=== PATIENT | female | born 1970 | race Caucasian/White ===

== ENCOUNTER 2017-09-28 11:44 | Emergency (ER) | payer OTHER, SELFPAY ==
[2017-09-28 11:45] VITALS: BP 145/90; PULSE 78; RESP 18; TEMP 36.6; O2SAT 100; BMI 26.6
--- NOTE | 2017-09-28 12:00 | EKG12_ITS ---
Test Reason : DIZZINESS Blood Pressure : / mmHG Vent. Rate : 067 BPM Atrial Rate : 067 BPM P-R Int : 130 ms QRS Dur : 076 ms QT Int : 386 ms P-R-T Axes : 061 072 059 degrees QTc Int : 407 ms Normal sinus rhythm Normal ECG Confirmed by MARBIN GREEN, SARA ([id number]), managing editor MARISSA BUSTAMANTE ([id number] on 09/30/2017 2:57:13 PM Referred By: SIMON Confirmed By:SARA ZAZUETA MD
[2017-09-28 12:03] VITALS: BP 129/73; BP 135/86; BP 139/87; PULSE 60; PULSE 81
[2017-09-28] MEDS: 0.9% Normal Saline 1,000 ML 1000 ML IV (12:19)
[2017-09-28 12:30] LABS: Absolute Lymphocyte Count 2.61 X10^3/ul (0.83-4.51); Absolute Neutrophil Count 5.2 X10^3/uL (2.0-7.7); Basophil# 0.04 X10^3/uL; Basophil% 0.5 % (0-1); Eosinophil# 0.06 X10^3/uL; Eosinophils% 0.7 % (0-5); Hematocrit 40.8 % (37-47); Hemoglobin 13.5 g/dl (12.0-15.0); Lymphocyte # 2.61 X10^3/ul (4.0); Lymphocyte % 30.5 % (19-41); Mean Corp Hgb Conc 33.1 g/gl (32-36); Mean Corpuscular Hgb 29.5 pg (27.0-32.0); Mean Corpuscular Volume 89.3 fL (81-99); Mean Platelet Vol. 9.5 fl (6.2-12.0); Neutrophil # 5.23 X10^3/uL (2.7-7.7); Neutrophil % 61.2 % (47-70); Platelet Count 295 K/mm3 (150-450); RBC Distribution Width CV 13.9 % (11.6-14.6); Red Blood Count 4.57 M/mm3 (4.2-5.4); White Blood Count 8.6 K/mm3 (4.4-11.0)
[2017-09-28 12:32] LABS: POSITIVE COUNT NO; POSITIVE DIFFERENTIAL NO; POSITIVE MORPHOLOGY NO
[2017-09-28 12:41] LABS: Anion Gap 5 (5-15); BUN 11 mg/dL (7-18); BUN/Creat Ratio 18.4 RATIO (10-20); Calcium,Total 8.5 mg/dL (8.5-10.1); Chloride 108 mmol/L (98-107); EST Glomerular Filtration Rate 114 mL/min (>60); Est Glom Filt Rate - Afr Amer 138 mL/min (>60); Estimated Creatinine Clearance 121.14 ml/min; Glucose 90 mg/dL (74-106); Potassium 3.3 mmol/L (3.5-5.1); Sodium Level 141 mmol/L (136-145)
--- NOTE | 2017-09-28 12:53 | PCA ---
DR. BERMUDEZ PAGED
--- NOTE | 2017-09-28 13:05 | ED.DCSUM_ITS ---
- ER Visit Summary Date of Service: 09/28/17 Chief Complaint: Dizziness History of Present Illness: The patient is a 46 F with dizziness. Patient states that she has been dizzy with spinning sensation intermittently for the past month. Today she states she felt weak all over and fell to the ground. She had no syncope no loss of consciousness. She did not hit her head. She states she bumped her right knee and right first finger. She has been able to ambulate since. She also complains of fatigue ?1 month. She also complains of blood pressure issues which have been ongoing for the past 2 years. 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 On arrival her is requesting an MRI with and without contrast. Physical Examination: Vitals are stable. Patient is afebrile. Alert no acute distress. HEENT exam is unremarkable. Neck is supple. Lungs are clear and equal bilaterally. Heart is regular rate and rhythm. Abdomen is soft nontender nondistended. Extremities are unremarkable. Skin is warm and dry. No focal neurologic deficit. Remainder of exam is unremarkable. Emergency Department Course and Treatment: EKG is sinus rate is 67 with no acute ischemic changes. CBC, chemistries unremarkable. Orthostatics are negative. Patient was given IV fluids, meclizine with improvement. Discussed with Dr. Shabazz and patient will have an MRI brain in ED without contrast. MRI shows no acute process. Patient was given Zofran IV. She is given a prescription for Meclizine. She is advised to follow-up with Dr. Olivera her primary care physician. Advised return to ED if worsening complaints. Disposition: Discharge home Impression: Benign positional vertigo This note was generated with [employer] dictation software. It may contain incorrect words, spelling, and punctuation that were not noted in review of the chart prior to signing ED Disposition - Plan for ED Patient: Chief Complaint: Dizziness Referrals: Angelo Olivera DO [Primary Care Provider] -
[2017-09-28] MEDS: Meclizine HCl 25 MG Tablet PO (13:10)
--- NOTE | 2017-09-28 13:20 | MRI_ITS ---
STUDY: MRI BRAIN WITHOUT CONTRAST REASON FOR EXAM: Female, 46 years old. Vertigo, dizzy. No syncope. TECHNIQUE: Standardized multiplanar fat and water weighted pulse sequences were obtained. COMPARISON: None. FINDINGS: No restricted diffusion to suspect acute or subacute ischemic infarct. Normal size of the ventricles and extra-axial spaces for the patient's age. Normal white matter tracts of the supratentorial brain. Normal bilateral basal ganglia. Normal thalami. There is no extra-axial fluid accumulation. Normal flow voids within the major intracranial circulation suggesting patency by spin echo criteria. Normal sella turcica, pituitary gland, infundibular stalk, optic chiasm and hypothalamus. Normal tectal plate and pineal gland. Normal midbrain, olga and medulla. Normal cerebellum. Normal basal cisterns. Normal bilateral temporal bones. Normal bilateral internal auditory canals. No demonstrated orbital abnormality, within the constraints of a routine brain study. Normal visualized paranasal sinuses. Normal calvarium and skull base. Normal visualized soft tissue structures. Normal visualized upper cervical spine. MRI/Brain without Contrast IMPRESSION: Normal unenhanced MRI of the brain. Electronically Signed: Pro Bal MD at 14:52 EDT , Service support ,
[2017-09-28] MEDS: Ondansetron 4 MG/2 ML Vial IV (14:59)
--- NOTE | 2017-09-28 15:01 | ED.DEP ---
ED Disposition - Plan for ED Patient: Chief Complaint: Dizziness Instructions: ED BPV Vertigo Prescriptions: Meclizine HCl [Antivert] 12.5 mg PO TID PRN PRN #20 tablet PRN Reason: Vertigo Referrals: Angelo Olivera DO [Primary Care Provider] -
[2017-09-28 15:29] VITALS: BP 129/81; PULSE 52; RESP 16; O2SAT 98
== END 2017-09-28 15:30 | disposition home or self-care (01) ==
PROVIDERS: Emergency Provider Emergency Medicine; Family Provider Family Medicine; PCP Family Medicine
DX: H81.10 Benign paroxysmal vertigo, unspecified ear (principal); E27.1 Primary adrenocortical insufficiency; Z79.899 Other long term (current) drug therapy
CPT/HCPCS: 70551; 80048; 85025; 93005; 96361; 96374; 99283; J7030; A4216; J2405

== ENCOUNTER 2017-10-03 10:41 | Emergency (ER) | payer OTHER, SELFPAY ==
[2017-10-03 10:42] VITALS: BP 150/73; PULSE 89; RESP 17; TEMP 36.1; O2SAT 100; BMI 29.1
--- NOTE | 2017-10-03 10:48 | RAD_ITS ---
STUDY: X-RAY - RIGHT HAND REASON FOR EXAM: Female, 46 years old. Right hand pain after fall yesterday TECHNIQUE: 3 view(s) of the hand. COMPARISON: None. FINDINGS: Normal radiocarpal articulation. Normal distal radioulnar joint. Normal visualized carpal bones. Normal carpal articulations Normal carpometacarpal articulation of the thumb. Normal second through fifth carpometacarpal joints. Normal metacarpi. Normal metacarpophalangeal joint of the thumb. Normal interphalangeal joint of the thumb. Normal proximal and distal phalanges of the thumb. Normal metacarpophalangeal joints of the second through fifth fingers. Normal proximal and distal interphalangeal joints of the second through fifth fingers. Normal phalanges of the second through fifth fingers. The soft tissue structures are unremarkable. RAD/Hand Min 3 Views IMPRESSION: Normal x-ray examination of the hand. Electronically Signed: Jerardo Bell DO at 11:56 EDT Tel , Service support ,
--- NOTE | 2017-10-03 10:48 | RAD_ITS ---
STUDY: X-RAY - RIGHT WRIST REASON FOR EXAM: Female, 46 years old. Wrist pain after fall yesterday TECHNIQUE: 3 view(s) of the wrist were obtained. COMPARISON: None. FINDINGS: Normal visualized distal radius and ulna. Normal radiocarpal articulation. Normal distal radioulnar articulation. Normal carpal bones. Normal carpal articulations. Normal carpometacarpal articulation of the thumb. Normal second through fifth carpometacarpal articulations. Normal visualized metacarpal bones. The soft tissue structures are unremarkable. RAD/Wrist min 3 Views IMPRESSION: Normal x-ray examination of the wrist. Electronically Signed: Jerardo Bell DO at 11:57 EDT Tel , Service support ,
--- NOTE | 2017-10-03 10:55 | ED.VISSUMM ---
- ER Visit Summary Date of Service: 10/03/17 Chief Complaint: Right hand and wrist pain. History of Present Illness: The patient is a 46 F presenting with right hand and wrist pain. Patient states she fell onto her outstretched right upper extremity yesterday. She has had persistent pain in her hand and wrist. She tried Aleve at home. She did not hit her head or lose consciousness. Physical Examination: Vitals are stable. Patient is afebrile. Alert no acute distress. HEENT exam is unremarkable. Neck is nontender Lungs are clear and equal bilaterally. Heart is regular rate and rhythm. Abdomen is soft nontender nondistended. Extremities mild diffuse tenderness right hand and wrist. Active full range of motion. No elbow tenderness Skin is warm and dry. Remainder of exam is unremarkable. Emergency Department Course and Treatment: Xray of the right hand and wrist show no acute process. She is given a Velcro wrist splint. Advised to continue NSAIDs. Advised to ice and elevate. Advised to follow-up with her primary care physician. Advised return to ED for worsening complaints. Disposition: Discharged home Impression: Right wrist sprain status post fall This note was generated with [employer] dictation software. It may contain incorrect words, spelling, and punctuation that were not noted in review of the chart prior to signing ED Disposition - Plan for ED Patient: Chief Complaint: Upper Extremity Injury Instructions: ED Sprain Wrist Referrals: Angelo Olivera DO [Primary Care Provider] -
--- NOTE | 2017-10-03 12:19 | ED.DEP ---
ED Disposition - Plan for ED Patient: Chief Complaint: Upper Extremity Injury Instructions: ED Sprain Wrist Referrals: Angelo Olivera DO [Primary Care Provider] -
[2017-10-03 12:28] VITALS: RESP 16
--- NOTE | 2017-10-03 12:28 | ED.RN ---
Pt has wrist splint at home that she put on. okay if pt wants to use home splint. Answered all questions. No further concerns.
== END 2017-10-03 12:30 | disposition home or self-care (01) ==
PROVIDERS: Emergency Provider Emergency Medicine; Family Provider Family Medicine; PCP Family Medicine
DX: S63.501A Unspecified sprain of right wrist, initial encounter (principal); W19.XXXA Unspecified fall, initial encounter; Y93.9 Activity, unspecified; Y92.9 Unspecified place or not applicable; Y99.9 Unspecified external cause status
CPT/HCPCS: 73110; 73130; 99282

== ENCOUNTER → 2017-10-22 15:21 | Outpatient (CLI) | payer OTHER, SELFPAY ==
--- NOTE | 2017-10-22 15:26 | RAD_ITS ---
STUDY: X-RAY - RIGHT HAND REASON FOR EXAM: Female, 46 years old. 3 TECHNIQUE: Right hand view(s) of the hand. COMPARISON: FINDINGS: There is no evidence of fracture or dislocation. There are no significant degenerative changes. There are no radiodense foreign bodies. RAD/Hand Min 3 Views IMPRESSION: No fracture or dislocation. Electronically Signed: Sarmad See, at 23:59 EDT Tel , Service support ,
--- NOTE | 2017-10-22 15:26 | RAD_ITS ---
STUDY: X-RAY - RIGHT WRIST REASON FOR EXAM: Female, 46 years old. Continued pain and swelling status post fall 3 weeks ago. TECHNIQUE: 4 view(s) of the wrist were obtained. COMPARISON: October 03, 2017 FINDINGS: Normal visualized distal radius and ulna. Normal radiocarpal articulation. Normal distal radioulnar articulation. Normal carpal bones. Normal carpal articulations. Normal carpometacarpal articulation of the thumb. Normal second through fifth carpometacarpal articulations. Normal visualized metacarpal bones. The soft tissue structures are unremarkable. RAD/Wrist min 3 Views IMPRESSION: There is no acute displaced fracture or dislocation. There is no significant interval change. MRI may provide additional detail assessing for soft tissue/ligamentous injury. Electronically Signed: Bessie Church MD at 7:56 EDT , Service support ,
== END ==
PROVIDERS: Family Provider Family Medicine; PCP Family Medicine; Visit Provider Family Medicine
DX: M25.531 Pain in right wrist (principal)
CPT/HCPCS: 73110; 73130

== ENCOUNTER → 2017-11-12 10:47 | Outpatient (CLI) | payer OTHER, SELFPAY ==
--- NOTE | 2017-11-12 10:50 | RAD_ITS ---
STUDY: X-RAY - THORACIC SPINE REASON FOR EXAM: Female, 46 years old. Scoliosis TECHNIQUE: 3 view(s) of the thoracic spine were obtained. COMPARISON: None. FINDINGS: Normal kyphosis of the thoracic spine. There is minimal dextro scoliosis of the thoracic spine. Normal thoracic vertebrae and endplates. Normal disc space heights. 5.5 mm nodule in the mid right lung. The soft tissue structures are unremarkable. RAD/Thoracic Spine 3 Views IMPRESSION: Mild dextro scoliosis of the thoracic spine. Right mid lung nodule. Correlation with prior imaging would be helpful if available. Otherwise, please obtain chest CT follow-up. Electronically Signed: Amado Burnett MD at 17:04 EDT , Service support ,
--- NOTE | 2017-11-12 10:50 | RAD_ITS ---
STUDY: X-RAY - LUMBAR SPINE REASON FOR EXAM: Female, 46 years old. Scoliosis TECHNIQUE: 3 view(s) of the lumbar spine were obtained. COMPARISON: None FINDINGS: Normal lumbar lordosis. There is a levoscoliosis of the lumbar spine. There is 27 degree scoliosis of the lumbar spine at the level of L1-2. There is a normal alignment of the vertebrae. Normal vertebral bodies and endplates. Normal disc space heights. The soft tissue structures are unremarkable. RAD/Lumbar Spine 2 or 3 Views IMPRESSION: There is a levoscoliosis of the lumbar spine. There is 27 degree scoliosis of the lumbar spine at the level of L1-2. Electronically Signed: Amado Burnett MD at 17:04 EDT , Service support ,
== END ==
PROVIDERS: Family Provider Family Medicine; PCP Family Medicine; Visit Provider Family Medicine
DX: M43.8X9 Other specified deforming dorsopathies, site unspecified (principal); M54.5 Low back pain
CPT/HCPCS: 72072; 72100

== ENCOUNTER → 2017-11-25 15:39 | Outpatient (CLI) | payer OTHER, SELFPAY ==
--- NOTE | 2017-11-25 15:42 | CT_ITS ---
STUDY: CT CHEST WITH CONTRAST REASON FOR EXAM: Female, 47 years old. Lung nodule RADIATION DOSAGE (If Supplied By Facility): CTDIvol = ( 8.81 ) mGy, DLP = ( 299.94 ) mGycm TECHNIQUE: Transaxial imaging was performed following intravenous administration of 100CC ml of Isovue 300 contrast material. Individualized dose optimization techniques were used for this CT. COMPARISON: Prior study of 04/10/2016 FINDINGS: There are mild fibrotic changes of the lung apices. There are mild diffuse emphysematous changes of the lungs. There is an 8.5 mm calcified granuloma of the right upper lobe abutting the minor fissure. There is no demonstrated pleural abnormality. Normal heart and pericardium. There is a small calcified subcarinal node. There are several calcified right hilar nodes. Normal enhanced pulmonary arteries. Normal aorta arch and descending thoracic aorta. There is mild thoracic dextroscoliosis. There is a stable 6 mm right hepatic lobe cyst. There are stable bilateral thyroidal cysts and/or nodules. CT/Chest WITH Contrast IMPRESSION: 1. Mild fibrotic changes of the lung apices. 2. Mild emphysematous changes of the lungs predominantly involving the upper lobes. 3. Stable 8.5 mm calcified granuloma of the right upper lobe. 4. Small calcified subcarinal and right hilar nodes. 5. Stable 6 mm right hepatic lobe cyst. 6. Stable bilateral thyroid cysts and/or nodules. Electronically Signed: Fili Melendez MD at 16:45 EDT , Service support ,
== END ==
PROVIDERS: Family Provider Family Medicine; PCP Family Medicine; Visit Provider Family Medicine
DX: R91.1 Solitary pulmonary nodule (principal); Z72.0 Tobacco use
CPT/HCPCS: 71260; Q9967

== ENCOUNTER 2018-04-20 15:30 | Outpatient (RCR) | payer OTHER, SELFPAY ==
--- NOTE | 2018-02-17 17:13 | HP.OTEVAL_ITS ---
Patient's Visit Information VY HARLEY is a 47 year old F, referred to Occupational Therapy by Abhay Lee, with a diagnosis of Tenosynovectomy R wrist; intersection syndrome. Date of Evaluation: 02/17/18 Occupational Therapist: Eileen Bond - Subjective Subjective: Arrived and noted had surgery on January 27. Notes fell on October 02. 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 Notes uses hands daily. She noted that she 'had surgery to place tendons in correct location and clean out scar tissue'. Cast off last Wednesday. Noted went to [facility] OT no push/ pulling for a couple weeks. OT reiterated points and review AROM exercises provided [facility]. She is to continue HEP and scar massage form as well as elastomer provided for scar management. - Pain Right Wrist 5 Pain Intensity Range: 2, 9 - ROM Forearm: sup R 0-65, L WNL; Pro R 0-65, L WNL Wrist: Flexion R 0-15, L 0-84; ext R 0-26, L 0-62 MP: WFL PIP: WFL DIP: WFL ROM Comments: radial dev R 0-0, L 0-5. 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 Strength Comments: Recebtly out of cast but very painful with all movement as came to OT post work day. Will progressively work on getting fx pincer measurments. - Sensation Sensation Comments: Denies tingling; some numbness around scar and elbow. - In-Hand Manipulation Finger to Palm Translation: Moderate - Right, Normal - Left Palm to Finger Translation: Moderate - Right, Normal - Left Shift: Normal - Right, Normal - Left Rotation: Normal - Right, Normal - Left - DASH-Disabilities of Arm, Shoulder& Hand DASH Sum: 112 - Goals Goal:: Vy to increased R metal cut off saw tender to that of within 20-30 lbs of L nonaffected hand to promote increased strength need to manipulate self care items by d/c. Goal:: Vy to increased ROM of R wrist by 10-15 degrees to promote increased mobility of R wrist to increased fx needed to manipulate self care tasks by d/c. Goal:: Vy to have no more than 1/10 pain while completing ADl/IADls 4/5 trials 80% of the time to promote increased ability to return to PLFO by d/c. Goal:: Vy to be mod I to complete edema management techniques 4/5 trials 80% of the time to promote increased ROM and strength for ADL/IADls by d/c. Goal:: Vy to complete daily scar massage as directed to promote and manage scar tissue 4/5 trials 80% of the time by d/c. Goal:: Vy to be mod I to complete proper wrist mechanics at desk based job 4/ 5 trials 80% of the time to decrease pain and promote particpation in job by d/ c. Goal:: Vy to be (I) to return to all ADl/IADls including crocheting 4/5 trials 80% of the time with good wrist mechanics to promote returning to PLOF by d/c. - Rehabilitation General Assessment: Vy arrived for OT evaluation on this date. She had fall October 02 resulting in wrist injury and most recently has tenosynovectomy of R wrist. ROM, strength, and ability to complete ADl/IADls at PLOF is extremely limited. She is back to work at this time but notes increased achiness. OT to work on edema management, scar massage and management, ROM, strength, and returning to all ADL/IADLS at PLOF to promote increased use of R UE at PLOF. Rehabilitation Potential: Excellent - Anticipated Interventions Anticipated Interventions: Early Active Motion, A/AAROM/PROM, Strengthening, Scar Care, Triggerpoint Release, Desensitization, Modalities, Orthoses, Joint Protection/Energy Conservation, Ergonomic Education, Fine Motor Coord/Abdirashid, ADL Training, Caregiver Training, Home Program - Visit Plan Frequency: 2x /Week Duration: 6 Weeks General Plan: OT to promote increased ROM, strength, edema management, pain management through use of modalities, ergonomic and joint protection techiques, as well as increasing fx of R hand to return to PLOF. TEXT: Thank you for the opportunity to evaluate your patient. For Medicare and Medicare HMO plans, please review the plan of care and approve it. It will need to be FAXED BACK to us at [phone] for Medicare purposes. Please let me know if there are questions or concerns regarding this plan of care. Physician Signature: Date:
--- NOTE | 2018-03-23 19:02 | HP.OTREVAL ---
Abhay Lee, It has been my pleasure to treat VY HARLEY over the last 6 visits for Tenosynovectomy R wrist; intersection syndrome. Please see the progress note below for an update on the occupational therapy plan of care! Subjective: Arrived and noted increased soreness post last session. Noted soreness about 2/10. Follow up appointment with doctor wednesday morning. Report to be sent over. Objective/Function: Reassessment occurred on this date of 03/23/18. She is progressing with all measurements and goals will be adjusted. Measurements as follows: ROM. Wrist: flexion R 0-48, L WNL. ext: R 0-44, L WNL. supination: R 0-60, L 0-79. radial dev: R 0-14, L WNL. ulnar dev: R 0-17, L WNL. Strength assessment is as follows: Evaporator: standing position arm at 90: R76, L 89. Evaporator sitting arm at 90: R 70, L 105. lateral pinch : R 19, L 21. three jaw : R 16, L 18. pincer: R 10, L 14. Strength and ROM have progressed since initial evaluation. Plan Frequency: 2x /Week Duration: 3 Weeks Visits in this POC: 6 Plan: continue POC as scheduled with next three weeks of OT to promote increased strength and continued ROM as she continues to progress with measurements. She is compliant with HEP and is to slowly and progressively start using R hand as tolerated for light ADl/IADls. She still is favoring R hand as to be explected and has not returned to all IADls. Further Ot needed to promote increased (I) to return to PLOF. Goals - Goals Goal:: Vy to increased R histologic aide to that of within 20-30 lbs of L nonaffected hand to promote increased strength need to manipulate self care items by d/c. Goal:: Vy to increased ROM of R wrist within 20 degrees of L nonaffected hand to promote increased mobility of R wrist to increased fx needed to manipulate self care tasks by d/c. Goal:: Vy to have no more than 1/10 pain while completing ADl/IADls 4/5 trials 80% of the time to promote increased ability to return to PLFO by d/c. Goal:: Vy to be mod I to complete edema management techniques 4/5 trials 80% of the time to promote increased ROM and strength for ADL/IADls by d/c. Goal:: Vy to complete daily scar massage as directed to promote and manage scar tissue 4/5 trials 80% of the time by d/c. 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 Goal:: Vy to be (I) to return to all ADl/IADls including crocheting 4/5 trials 80% of the time with good wrist mechanics to promote returning to PLOF by d/c. Anticipated Interventions Anticipated Interventions: Early Active Motion, A/AAROM/PROM, Strengthening, Scar Care, Triggerpoint Release, Desensitization, Modalities, Orthoses, Joint Protection/Energy Conservation, Ergonomic Education, Fine Motor Coord/Abdirashid, ADL Training, Caregiver Training, Home Program Please do not hesitate to contact me at [phone] by phone or if you have questions or concerns regarding this new plan of care! Sincerely, Eileen Bond
--- NOTE | 2018-03-23 19:05 | OTREVAL_ITS ---
Abhay Lee, It has been my pleasure to treat VY HARLEY over the last 6 visits for Tenosynovectomy R wrist; intersection syndrome. Please see the progress note below for an update on the occupational therapy plan of care! Subjective: Arrived and noted increased soreness post last session. Noted soreness about 2/10. Follow up appointment with doctor wednesday morning. Report to be sent over. Objective/Function: Reassessment occurred on this date of 03/23/18. She is progressing with all measurements and goals will be adjusted. Measurements as follows: ROM. Wrist: flexion R 0-48, L WNL. ext: R 0-44, L WNL. supination : R 0-60, L 0-79. radial dev: R 0-14, L WNL. ulnar dev: R 0-17, L WNL. Strength assessment is as follows: Face Burler: standing position arm at 90: R76, L 89. Face Burler sitting arm at 90: R 70, L 105. lateral pinch : R 19, L 21. three jaw : R 16, L 18. pincer: R 10, L 14. Strength and ROM have progressed since initial evaluation. Plan Frequency: 2x /Week Duration: 3 Weeks Visits in this POC: 6 Plan: continue POC as scheduled with next three weeks of OT to promote increased strength and continued ROM as she continues to progress with measurements. She is compliant with HEP and is to slowly and progressively start using R hand as tolerated for light ADl/IADls. She still is favoring R hand as to be explected and has not returned to all IADls. Further Ot needed to promote increased (I) to return to PLOF. Goals - Goals Goal:: Vy to increased R production grip to that of within 20-30 lbs of L nonaffected hand to promote increased strength need to manipulate self care items by d/c. Goal:: Vy to increased ROM of R wrist within 20 degrees of L nonaffected hand to promote increased mobility of R wrist to increased fx needed to manipulate self care tasks by d/c. Goal:: Vy to have no more than 1/10 pain while completing ADl/IADls 4/5 trials 80% of the time to promote increased ability to return to PLFO by d/c. Goal:: Yv to be mod I to complete edema management techniques 4/5 trials 80% of the time to promote increased ROM and strength for ADL/IADls by d/c. Goal:: Vy to complete daily scar massage as directed to promote and manage scar tissue 4/5 trials 80% of the time by d/c. Goal:: Vy to be mod I to complete proper wrist mechanics at desk based job 4/ 5 trials 80% of the time to decrease pain and promote particpation in job by d/ c. Goal:: Yv to be (I) to return to all ADl/IADls including crocheting 4/5 trials 80% of the time with good wrist mechanics to promote returning to PLOF by d/c. Anticipated Interventions Anticipated Interventions: Early Active Motion, A/AAROM/PROM, Strengthening, Scar Care, Triggerpoint Release, Desensitization, Modalities, Orthoses, Joint Protection/Energy Conservation, Ergonomic Education, Fine Motor Coord/Abdirashid, ADL Training, Caregiver Training, Home Program Please do not hesitate to contact me at [phone] by phone or Fax: if you have questions or concerns regarding this new plan of care! Sincerely, Eileen Bond
--- NOTE | 2018-04-20 16:25 | OTREVAL_ITS ---
Abhay Lee, It has been my pleasure to treat VY HARLEY over the last 9 visits for Tenosynovectomy R wrist; intersection syndrome. Please see the progress note below for an update on the occupational therapy plan of care! Subjective: Arrived and noted needed medications adjusted as having seziures and thats why needing to cancel. Feels about 75-80 back to PLOF. Objective/Function: Completed reassessment on this date. Completed measurments as follows: wrist: flexion: R 0-61, L WFL. extension R 0-51, L WFL. supination R 0-82, L WFL. Radial deviation R 0-14, L WFL. Ulnar Deviation: R0- 29, L WFL. Strength measurments are as follows: Manager Agricultural: R 83, L 86. Lateral; R 21, L 21. Tripod: R 17, L 18. Pincer R 14, L 14. Plan Frequency: 1x/Week Duration: 3 Weeks Visits in this POC: 1 Plan: Pt is progressing well and continues to make improvements. She will complete 1x follow follow up in 3 weeks. She has done very well with completing HEp and has continually improved throughout the course of therapy. She is to call questions/concerns. 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 Goal:: Vy to increased ROM of R wrist within 20 degrees of L nonaffected hand to promote increased mobility of R wrist to increased fx needed to manipulate self care tasks by d/c. Goal:: Vy to have no more than 1/10 pain while completing ADl/IADls 4/5 tria ls 80% of the time to promote increased ability to return to PLFO by d/c. Goal:: Vy to be mod I to complete edema management techniques 4/5 trials 80% of the time to promote increased ROM and strength for ADL/IADls by d/c. Goal:: Vy to complete daily scar massage as directed to promote and manage scar tissue 4/5 trials 80% of the time by d/c. 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 Goal:: Vy to be (I) to return to all ADl/IADls including crocheting 4/5 trials 80% of the time with good wrist mechanics to promote returning to PLOF by d/c. Anticipated Interventions Anticipated Interventions: Early Active Motion, A/AAROM/PROM, Strengthening, Scar Care, Triggerpoint Release, Desensitization, Modalities, Orthoses, Joint Protection/Energy Conservation, Ergonomic Education, Fine Motor Coord/Abdirashid, ADL Training, Caregiver Training, Home Program Please do not hesitate to contact me at [phone] by phone or if you have questions or concerns regarding this new plan of care! Sincerely, Eileen Bond
--- NOTE | 2018-06-30 14:58 | HP.OTDCSUM ---
HP - OT D/C Summary It has been my pleasure to treat VY HARLEY under orders from Abhay Lee, for the diagnosis of Tenosynovectomy R wrist; intersection syndrome for a total of 9 visit(s). Please see the following information for a summary of their discharge status. - Overall Improvement % Improvement: 75 - Objective Objective/Function: Completed reassessment on this date. Completed measurments as follows: wrist: flexion: R 0-61, L WFL. extension R 0-51, L WFL. supination R 0-82, L WFL. Radial deviation R 0-14, L WFL. Ulnar Deviation: R0-29, L WFL. Strength measurments are as follows: Silo Filler: R 83, L 86. Lateral; R 21, L 21. Tripod: R 17, L 18. Pincer R 14, L 14. - Goals Patient Goals: Regain Mobility, Regain Strength, Decrease Pain, Return to Work, Decrease Swelling/Stiffness, Improve Fine Motor Skills, Use Hand/Wrist/Arm Normally Again, Sleep Better, Decrease Tingling/Numbness, Increase ROM, Be More Independent in ADLS, Decrease Sensitivity, Resume Former Household Responsibilities (Cooking,Cleaning,Yard, etc.), Resume Hobbies Goal:: Vy to increased R finisher map and chart to that of within 20-30 lbs of L nonaffected hand to promote increased strength need to manipulate self care items by d/c. Goal:: Vy to increased ROM of R wrist within 20 degrees of L nonaffected hand to promote increased mobility of R wrist to increased fx needed to manipulate self care tasks by d/c. Goal:: Vy to have no more than 1/10 pain while completing ADl/IADls 4/5 trials 80% of the time to promote increased ability to return to PLFO by d/c. Goal:: Vy to be mod I to complete edema management techniques 4/5 trials 80% of the time to promote increased ROM and strength for ADL/IADls by d/c. Goal:: Vy to complete daily scar massage as directed to promote and manage scar tissue 4/5 trials 80% of the time by d/c. 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 Goal:: Vy to be (I) to return to all ADl/IADls including crocheting 4/5 trials 80% of the time with good wrist mechanics to promote returning to PLOF by d/c. - Plan Plan: Pt is progressing well and continues to make improvements. She was to follow up in three weeks but did not complete and will be discharged at this time. She is to call questions/concerns. - D/C Information If there are questions or concerns regarding this patient's occupational therapy, please fell free to call me at [phone]. Thank you for the referral of this patient. Sincerely, Eileen Bond
== END 2018-04-20 19:00 | disposition home or self-care (01) ==
LOC: OT 15:30
PROVIDERS: Family Provider Family Medicine; PCP Family Medicine; Visit Provider Orthopaedic Surgery
DX: M65.4 Radial styloid tenosynovitis [de Quervain] (principal); M65.839 Other synovitis and tenosynovitis, unspecified forearm
CPT/HCPCS: 97035; 97110; 97140; 97166; 97168; 97530

== ENCOUNTER → 2018-06-21 12:08 | Outpatient (CLI) | payer OTHER, SELFPAY ==
[2018-06-21 12:11] LABS: White Blood Cells 0 SEEN /hpf (0-5)
[2018-06-21 15:22] LABS: Color, Urine Yellow (Yellow); Glucose, Dipstick Normal (Normal); Ketone-Dipstick Negative (Negative); Leukocyte Esterase-Dipstick Negative /ul (Negative); Nitrite-Dipstick Negative (Negative); Occult Blood-Urine 10 /ul (Negative); Protein-Dipstick Negative (Negative); Urine Bilirubin Dipstick Negative (Negative); Urine Clarity Sl. Cloudy (Clear); Urine Urobilinogen Normal (Normal)
[2018-06-21 15:26] LABS: Bacteria 2+ /hpf (None Seen); Mucous, Urine 1+ /hpf (<or=2+); Red Blood Cells-Urine 0-5 SEEN /hpf (0-5); Squamous Epithelial Cells - UA 0-5 SEEN /hpf (5-10)
[2018-06-21 15:51] LABS: Absolute Lymphocyte Count 2.81 X10^3/ul (0.83-4.51); Absolute Neutrophil Count 6.1 X10^3/uL (2.0-7.7); Basophil# 0.04 X10^3/uL; Basophil% 0.4 % (0-1); Eosinophil# 0.08 X10^3/uL; Eosinophils% 0.8 % (0-5); Hematocrit 43.9 % (37-47); Hemoglobin 14.1 g/dl (12.0-15.0); Lymphocyte # 2.81 X10^3/ul (4.0); Mean Corp Hgb Conc 32.1 g/gl (32-36); Mean Corpuscular Hgb 29.4 pg (27.0-32.0); Mean Corpuscular Volume 91.6 fL (81-99); Monocyte# 0.64 X10^3/uL; Monocyte% 6.6 % (0-10); Neutrophil % 63.1 % (47-70); Platelet Count 316 K/mm3 (150-450); RBC Distribution Width CV 13.9 % (11.6-14.6); RBC Distribution Width SD 46.9 fl (35.1-43.9); Red Blood Count 4.79 M/mm3 (4.2-5.4); White Blood Count 9.7 K/mm3 (4.4-11.0)
[2018-06-21 15:52] LABS: POSITIVE COUNT NO; POSITIVE DIFFERENTIAL NO; POSITIVE MORPHOLOGY NO
[2018-06-21 15:58] LABS: Erythrocyte Sedimentation Rate 2 mm/hr (0-20)
[2018-06-21 16:22] LABS: ALB/GLOB Ratio 1.4 RATIO (0.9-2.4); AST(SGOT) 13 U/L (15-37); Alanine Aminotransfer ALT/SGPT 21 U/L (13-56); Alkaline Phosphatase 62 U/L (45-117); Anion Gap 9 (5-15); BUN 8 mg/dL (7-18); BUN/Creat Ratio 10.8 RATIO (10-20); CPK Total, Creatine Kinase 62 U/L (26-192); CRP < 2.90 mg/L (0.0-3.0); Calcium,Total 8.7 mg/dL (8.5-10.1); Chloride 107 mmol/L (98-107); Creatinine, Serum 0.74 mg/dL (0.55-1.02); EST Glomerular Filtration Rate 89 mL/min (>60); Est Glom Filt Rate - Afr Amer 108 mL/min (>60); Globulin 2.9 g/dL (2.2-4.2); Glucose 89 mg/dL (74-106); Potassium 3.5 mmol/L (3.5-5.1); Protein, Total 6.9 g/dL (6.4-8.2); Sodium Level 143 mmol/L (136-145)
--- OUTSIDE RECORDS SUMMARY | 2018-09-22 21:48 | XMS RPT_ITS ---
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 Plan of Care Type Date Detail Appointment 09:00 AM Abhay Lee MD, [address] [facility], [facility], [place], [address], Medications Medication Instructions Start Stop Generic Name NDC Provider Date Date AMBIEN TABS 1 tablet once ZOLPIDEM TARTRATE 46269266358 Abhay Gutierrez a day unsu TABS Jesus of dosage ETODOLAC 400 MG 1 tablet twice ETODOLAC 57608727092 Ana M TABS daily / Esquivel MECHANICAL COMMISSIONING ENGINEER FLUDROCORTISONE 4 tablets once FLUDROCORTISONE [id number] Ana M ACETATE 0.1 MG daily / ACETATE Alvin TABS MECHANICAL COMMISSIONING ENGINEER EFFEXOR XR 150 MG 1 capsule VENLAFAXINE HCL 26257901427 Ana M [id number] Esquivel MECHANICAL COMMISSIONING ENGINEER Conditions or Problems Problem Name Problem Onset Status Entry Provider Comment Standard Annotate Code Date Date Description Radial styloid M65.4 Active Abhay Gutierrez Radial styloid tenosynovitis (ICD-10-CM) 01/25 01/25 Jesus tenosynovitis [de Quervain] [de Quervain] Intersection 885667701 Active Abhay Gutierrez Intersection Right syndrome (SNOMED CT) 12/31 12/31 Jesus syndrome Allergies, Adverse Reactions, Alerts Allergy Name Reaction Start Date Severity Status Provider Description CANTALOUPE throat swelling, Critical Active Abhay Lee MD BANANA throat swelling, Critical Active Abhay Lee MD PLANT POLLENS congestion, hay Critical Active Abhay Gutierrez fever allergy Jesus GREEN PENICILLIN hives Critical Active Abhay Lee MD CODEINE PHOSPHATE hives Critical Active Abhay Lee MD Social History Concept Description Observation Name Observation Value Units Start Date 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 Preliminary social history data, not yet signed by the author as of Vital Signs Date Name Value Unit Description BMI (Body Mass 26.70 kg/m2 Body Mass Index Index) [Ratio] Preliminary vital sign data, not yet signed by the author as of BP Diastolic 85 mm[Hg] blood pressure, diastolic Preliminary vital sign data, not yet signed by the author as of BP Systolic 129 mm[Hg] blood pressure, systolic Preliminary vital sign data, not yet signed by the author as of Heart Rate 76 /min pulse rate E&M Preliminary vital sign data, not yet signed by the author as of Height 68 [in_us] height E&M Preliminary vital sign data, not yet signed by the author as of Height 173 cm height in centimeters E&M Preliminary vital sign data, not yet signed by the author as of Weight Measured 175 [lb_av] weight E&M Preliminary vital sign data, not yet signed by the author as of Weight Measured 80 kg weight in kilograms E&M Preliminary vital sign data, not yet signed by the author as of Results Date Name Value Unit Range Flag Description Office Visit: Postop - subsequent visit, Rm: 11 MEDS REVIEW Done Documentation of current medications (procedure) Preliminary observation data, not yet signed by the author as of Preliminary observation data, not yet signed by the author as of Clinical Summary: HMSPatientID SOP account number Procedures Code Procedure Name Date Entry Date G8731 Pain assessment documented as negative - follow-up not required G8427 Current medications documented 4004F Tobacco screening was positive - cessation counseling received G8417 BMI documented as above normal parameters - follow-up documented G8783 Blood pressure within normal parameters - no follow-up required [id number] Patient Encounter Medications Administered No information available. Immunizations No information available. Advance Directives There may be information available, but it has not been provided by the sender. Assessments There may be information available, but it has not been provided by the sender. Review of Systems There may be information available, but it has not been provided by the sender. Family History There may be information available, but it has not been provided by the sender. History of Past Illness There may be information available, but it has not been provided by the sender. History of Present Illness There may be information available, but it has not been provided by the sender.
--- OUTSIDE RECORDS SUMMARY | 2018-09-22 21:48 | XMS RPT_ITS ---
:1970 Author Organization OHIP Care Team Providers Name Role Phone DAISY SANCHEZ Attending Unavailable DAISY SANCHEZ Referring Unavailable Angelo Olivera Attending Unavailable Angelo Olivera Primary Care Unavailable Angelo Olivera Attending Unavailable Joselin, Angelo Primary Care Unavailable Fontana DamAbhay barraza Attending Unavailable JoselinAngelo crooks Primary Care Unavailable JoselinAngelo crooks Attending Unavailable Joselin, Angelo Primary Care Unavailable Joselin, Angelo Primary Care Unavailable Simon, Paula Attending Unavailable Joselin, Angelo Primary Care Unavailable Southern, Paula Attending Unavailable Joselin, Angelo Attending Unavailable Joselin, Angelo Referring Unavailable Joselin, Angelo Primary Care Unavailable PROBLEMS PROBLEMS DATE TYPE CONDITION / CODE ATTENDING STATUS SOURCE 06/21/2018 Unknown R50.9 - Fever, Angelo Olivera Active [place] unspecified / Community R50.9(ICD-10) Hospital Repository 06/21/2018 Unknown M79.10 - Myalgia, Angelo Olivera Active [place] unspecified site / Community M79.10(ICD-10) Hospital Repository 07/04/2018 Unknown M65.4 - Radial Abhay Lee Active [place] styloid [facility] tenosynovitis [[facility]] / Repository M65.4(ICD-10) PROCEDURES PROCEDURES No Procedure Records FoundRESULTS RESULTS OT D/C SUMMARY Observed: 06/30/2018 Status: F Source: [place] 3:00 PM [facility] REPOSITORY [facility] Occupational Therapy [facility] [facility] [place] [address] / REHABILITATION SERVICES DISCHARGE SUMMARY MR#: [id number] Acct: [id number] Name: RACHELLE JERRY Rep #: [id number] : 1970 47 From: Eileen Bond Referring Dr.: Abhay Lee Status: REG RCR Eval Date: Discharge Date: HP - OT D/C Summary It has been my pleasure to treat RACHELLE JERRY under orders from Abhay Lee, for the diagnosis of Tenosynovectomy R wrist; intersection syndrome for a total of 9 visit(s). Please see the following information for a summary of their discharge status. - Overall Improvement % Improvement: 75 - Objective Objective/Function: Completed reassessment on this date. Completed measurments as follows: wrist: flexion: R 0-61, L WFL. extension R 0-51, L WFL. supination R 0-82, L WFL. Radial deviation R 0-14, L WFL. Ulnar Deviation: R0-29, L WFL. Strength measurments are as follows: Oil Pumper: R 83, L 86. Lateral; R 21, L 21. Tripod: R 17, L 18. Pincer R 14, L 14. - Goals Patient Goals: Regain Mobility, Regain Strength, Decrease Pain, Return to Work, Decrease Swelling/Stiffness, Improve Fine Motor Skills, Use Hand/Wrist/Arm Normally Again, Sleep Better, Decrease Tingling/Numbness, Increase ROM, Be More Independent in ADLS, Decrease Sensitivity, Resume Former Household Responsibilities (Cooking,Cleaning,Yard, etc.), Resume Hobbies Goal:: Rachelle to increased R team driver to that of within 20-30 lbs of L nonaffected hand to promote increased strength need to manipulate self care items by d/c. Goal:: Rachelle to increased ROM of R wrist within 20 degrees of L nonaffected hand to promote increased mobility of R wrist to increased fx needed to manipulate self care tasks by d/c. Goal:: Rachelle to have no more than 1/10 pain while completing ADl/IADls 4/5 trials 80% of the time to promote increased ability to return to PLFO by d/c. Goal:: Rachelle to be mod I to complete edema management techniques 4/5 trials 80% of the time to promote increased ROM and strength for ADL/IADls by d/c. Goal:: Rachelle to complete daily scar massage as directed to promote and manage scar tissue 4/5 trials 80% of the time by d/c. Goal:: Rachelle to be mod I to complete proper wrist mechanics at desk based job 4/5 trials 80% of the time to decrease pain and promote particpation in job by d/c. Goal:: Rachelle to be (I) to return to all ADl/IADls including crocheting 4/5 trials 80% of the time with good wrist mechanics to promote returning to PLOF by d/c. - Plan Plan: Pt is progressing well and continues to make improvements. She was to follow up in three weeks but did not complete and will be discharged at this time. She is to call questions/concerns. - D/C Information If there are questions or concerns regarding this patient's occupational therapy, please fell free to call me at [phone]. Thank you for the referral of this patient. Sincerely, Eileen Bond <Electronically signed by Eileen Bond > 06/30/18 1500 CC: Abhay Lee; Angelo Olivera DO [facility] Signed URINALYSIS, COMPLETE Collected: 06/21/2018 Status: F Source: [place] 12:10 PM [facility] REPOSITORY Order Comment: How was Urine Obtained? CLEAN CATCH TYPE CODE TESTS RESULT OUT OF RANGE REFERENCE UNITS LAB L400.3000 Yellow COLOR Normal Yellow LAB L400.3050 Clear Normal CLARITY Sl. Cloudy LAB L400.3200 Normal mg/dl Normal GLUCOSE, UR Normal LAB L400.3300 Negative mg/dL Normal BILIRUBIN URINE Negative LAB L400.3400 Negative mg/dl Normal KETONE UR Negative LAB L400.3465 1.002-1.030 Normal SP.GR. DIPSTX 1.020 LAB L400.3550 5.0 - 8.0 pH UR Normal 6.0 LAB L400.3600 Negative mg/dl PROT Normal DIPSTX Negative LAB L400.3700 Normal mg/dl Normal UROBILI Normal LAB L400.3750 Negative Normal NITRITE UR Negative LAB L400.3780 Negative /ul High 10 OCCULT BLOOD-UR LAB L400.3800 Negative /ul LEUK Normal ESTERASE Negative LAB L400.4050 0-5 /hpf WBC 0 Normal SEEN LAB L400.4100 0-5 /hpf Normal RBC-UA 0-5 SEEN LAB L400.4150 5-10 /hpf SQUAM Normal EPI 0-5 SEEN LAB L400.4300 None Seen /hpf 2+ Normal BACTERIA LAB L400.4350 <or=2+ /hpf 1+ Normal MUCUS, URINE Performed By: #### L400.0001 #### [facility] Laboratory [address] [place], [address] CBC W/DIFF, AUTOMATED Collected: 06/21/2018 Status: F Source: [place] 12:10 PM [facility] REPOSITORY TYPE CODE TESTS RESULT OUT OF RANGE REFERENCE UNITS LAB L100.1000 4.4-11.0 K/mm3 Normal WBC 9.7 LAB L100.1200 4.2-5.4 M/mm3 Normal RBC 4.79 LAB L100.1300 12.0-15.0 g/dl Normal HGB 14.1 LAB L100.1400 37-47 % Normal HCT 43.9 LAB L100.1500 81-99 fL Normal MCV 91.6 LAB L100.1600 27.0-32.0 pg Normal MCH 29.4 LAB L100.1700 32-36 g/gl Normal MCHC 32.1 LAB L100.1810 11.6-14.6 % Normal RDW CV 13.9 LAB L100.1820 35.1-43.9 fl High RDW SD 46.9 LAB L100.1900 150-450 K/mm3 Normal PLT 316 LAB L100.2000 6.2-12.0 fl Normal MPV 10.0 LAB L100.2100 47-70 % Normal NEUT% 63.1 LAB L100.2200 19-41 % Normal LY% 29.0 LAB L100.2300 0-10 % Normal MONO% 6.6 LAB L100.2400 0-5 % Normal EO% 0.8 LAB L100.2500 0-1 % Normal BASO% 0.4 LAB L100.2550 0.0-0.9 % Normal IM GRAN % 0.100 Result Comment: IG% - Immature Granulocytes (promyelocytes, myelocytes and metamyelocytes) > 1% indicates that a LEFT SHIFT is Present. LAB L100.2620 2.0-7.7 X10 3/uL Normal Absolute Neut 6.1 LAB L100.2720 0.83-4.51 X10 3/ul Normal Absolute Lymph 2.81 Performed By: #### L100.0100, L101.9900 #### [facility] [address] [place], [place], [id number] ERYTHROCYTE SED RATE Collected: 06/21/2018 Status: F Source: [place] 12:10 PM [facility] REPOSITORY TYPE CODE TESTS RESULT OUT OF RANGE REFERENCE UNITS LAB L102.0000 0-20 mm/hr Normal SED RATE 2 Performed By: #### L100.0100, L101.9900 #### [facility] [address], [place], [id number] COMPREHENSIVE METABOLIC Collected: 06/21/2018 Status: F Source: [facility] 12:10 PM [facility] REPOSITORY TYPE CODE TESTS RESULT OUT OF RANGE REFERENCE UNITS LAB L501.0100 74-106 mg/dL Normal GLU 89 Result Comment: Please note revised GLUCOSE reference range effective 2017. LAB L501.1000 7-18 mg/dL Normal BUN 8 LAB L501.1100 0.55-1.02 mg/dL Normal CREAT,SERUM 0.74 Result Comment: The validity of the calculated GFR AND GFRAA in patients over 70 years has not been determined. Clinical correlation is essential. LAB L501.1110 >60 mL/min Normal EST GFR 89 Result Comment: Non- GFR Calc LAB L501.1115 >60 mL/min Normal EST GFR - AA 108 Result Comment: GFR Calc LAB L501.1300 10-20 RATIO Normal BUN/CRE 10.8 LAB L501.1500 6.4-8.2 g/dL T Normal PROT 6.9 LAB L501.1800 3.2-5.0 g/dL Normal ALB 4.0 LAB L501.1950 2.2-4.2 g/dL Normal GLOB 2.9 LAB L501.2000 0.9-2.4 RATIO Normal A/G 1.4 LAB L501.2200 8.5-10.1 mg/dL CA Normal 8.7 LAB L501.4100 15-37 U/L Low AST 13 LAB L501.4305 45-117 U/L Normal ALK P 62 LAB L501.4405 13-56 U/L Normal ALT 21 LAB L501.4600 0.20-1.00 mg/dL T Normal BILI 0.20 LAB L501.5300 136-145 mmol/L NA Normal 143 LAB L501.5600 3.5-5.1 mmol/L K Normal 3.5 LAB L501.5900 98-107 mmol/L CL Normal 107 LAB L501.6100 21.0-32.0 mmol/L Normal CO2 27.0 LAB L501.6200 5-15 Normal GAP 9 Performed By: #### L500.4050, L501.3620, L501.6710 #### [facility] [address] [place], [address] CPK TOTAL, CREATINE Collected: 06/21/2018 Status: F Source: [place] 12:10 PM [facility] REPOSITORY TYPE CODE TESTS RESULT OUT OF RANGE REFERENCE UNITS LAB L501.3620 26-192 U/L Normal CPK TOTAL 62 Performed By: #### L500.4050, L501.3620, L501.6710 #### [facility] [address] [place], [address] CRP Collected: 06/21/2018 Status: F Source: [place] 12:10 PM [facility] REPOSITORY TYPE CODE TESTS RESULT OUT OF RANGE REFERENCE UNITS LAB L501.6710 0.0-3.0 mg/L Normal < 2.90 C-REACTIVE PROT Result Comment: C-Reactive Protein (CRP) provides useful information for the diagnosis, therapy and monitoring of inflammatory processes and associated diseases. For the evaluation of Relative Risk for Cardiovascular Disease, a High Sensitivity CRP (HSCRP) should be ordered. Performed By: #### L500.4050, L501.3620, L501.6710 #### [facility] [address] [place], [address] Observed: 06/21/2018 Status: F Source: [place] CULTURE, URINE 12:10 PM [facility] REPOSITORY Urine Culture ORGANISM 1: Mixed Gram Positive Organisms [place] Count 25,000-50,000 MIX CULTURE Mixed contaminants. Submit a new specimen if indicated. Performed By: #### M100.0650 #### [facility] [address] [place], [address] RE-EVALUTION OT Observed: 04/26/2018 Status: F Source: [place] 7:55 AM [facility] REPOSITORY [facility] Occupational Therapy [facility] [address] [place] [address] Fax REEVALUATION / MEDICARE RECERTIFICATION OCCUPATIONAL THERAPY MR#: [id number] Acct: [id number] Name: RACHELLE JERRY Rep #: [id number] : 1970 47 From: Eileen Bond Referring DrHeather: Abhay Lee Status: REG RCR Insurance: [facility] Date: SELF PAY INSURANCE Abhay Lee, It has been my pleasure to treat RACHELLE JERRY over the last 9 visits for Tenosynovectomy R wrist; intersection syndrome. Please see the progress note below for an update on the occupational therapy plan of care! Subjective: Arrived and noted needed medications adjusted as having seziures and thats why needing to cancel. Feels about 75-80 back to PLOF. Objective/Function: Completed reassessment on this date. Completed measurments as follows: wrist: flexion: R 0-61, L WFL. extension R 0-51, L WFL. supination R 0-82, L WFL. Radial deviation R 0-14, L WFL. Ulnar Deviation: R0-29, L WFL. Strength measurments are as follows: Oil Pumper: R 83, L 86. Lateral; R 21, L 21. Tripod: R 17, L 18. Pincer R 14, L 14. Plan Frequency: 1x/Week Duration: 3 Weeks Visits in this POC: 1 Plan: Pt is progressing well and continues to make improvements. She will complete 1x follow follow up in 3 weeks. She has done very well with completing HEp and has continually improved throughout the course of therapy. She is to call questions/concerns. Goals - Goals Goal:: Rachelle to increased R team driver to that of within 20-30 lbs of L nonaffected hand to promote increased strength need to manipulate self care items by d/c. Goal:: Rachelle to increased ROM of R wrist within 20 degrees of L nonaffected hand to promote increased mobility of R wrist to increased fx needed to manipulate self care tasks by d/c. Goal:: Rachelle to have no more than 1/10 pain while completing ADl/IADls 4/5 trials 80% of the time to promote increased ability to return to PLFO by d/c. Goal:: Rachelle to be mod I to complete edema management techniques 4/5 trials 80% of the time to promote increased ROM and strength for ADL/IADls by d/c. Goal:: Rachelle to complete daily scar massage as directed to promote and manage scar tissue 4/5 trials 80% of the time by d/c. Goal:: Rachelle to be mod I to complete proper wrist mechanics at desk based job 4/5 trials 80% of the time to decrease pain and promote particpation in job by d/c. Goal:: Rachelle to be (I) to return to all ADl/IADls including crocheting 4/5 trials 80% of the time with good wrist mechanics to promote returning to PLOF by d/c. Anticipated Interventions Anticipated Interventions: Early Active Motion, A/AAROM/PROM, Strengthening, Scar Care, Triggerpoint Release, Desensitization, Modalities, Orthoses, Joint Protection/Energy Conservation, Ergonomic Education, Fine Motor Coord/Abdirashid, ADL Training, Caregiver Training, Home Program Please do not hesitate to contact me at [phone] by phone or if you have questions or concerns regarding this new plan of care! Sincerely, Eileen Bond <Electronically signed by Eileen Bond > 04/26/18 0750 CC: Abhay Lee; Angelo Olivera DO [facility] Signed For Medicare only, by signing this I certify the plan of care. Physicians Signature Date RE-EVALUTION OT Observed: 03/23/2018 Status: F Source: [place] 7:20 PM [facility] REPOSITORY [facility] Occupational Therapy [facility] [address] [place] [address] Fax REEVALUATION / MEDICARE RECERTIFICATION OCCUPATIONAL THERAPY MR#: [id number] Acct: [id number] Name: RACHELLE JERRY Rep #: [id number] : 1970 47 From: Eileen Bond Referring Dr.: Abhay Lee Status: REG RCR Insurance: [facility] [place] Date: SELF PAY INSURANCE Abhay Lee, It has been my pleasure to treat RACHELLE JERRY over the last 6 visits for Tenosynovectomy R wrist; intersection syndrome. Please see the progress note below for an update on the occupational therapy plan of care! Subjective: Arrived and noted increased soreness post last session. Noted soreness about 2/10. Follow up appointment with doctor wednesday morning. Report to be sent over. Objective/Function: Reassessment occurred on this date of 03/23/18. She is progressing with all measurements and goals will be adjusted. Measurements as follows: ROM. Wrist: flexion R 0-48, L WNL. ext: R 0-44, L WNL. supination: R 0-60, L 0- 79. radial dev: R 0-14, L WNL. ulnar dev: R 0-17, L WNL. Strength assessment is as follows: Oil Pumper: standing position arm at 90: R76, L 89. Oil Pumper sitting arm at 90: R 70, L 105. lateral pinch : R 19, L 21. three jaw : R 16, L 18. pincer: R 10, L 14. Strength and ROM have progressed since initial evaluation. Plan Frequency: 2x /Week Duration: 3 Weeks Visits in this POC: 6 Plan: continue POC as scheduled with next three weeks of OT to promote increased strength and continued ROM as she continues to progress with measurements. She is compliant with HEP and is to slowly and progressively start using R hand as tolerated for light ADl/IADls. She still is favoring R hand as to be explected and has not returned to all IADls. Further Ot needed to promote increased (I) to return to PLOF. Goals - Goals Goal:: Rachelle to increased R team driver to that of within 20-30 lbs of L nonaffected hand to promote increased strength need to manipulate self care items by d/c. Goal:: Rachelle to increased ROM of R wrist within 20 degrees of L nonaffected hand to promote increased mobility of R wrist to increased fx needed to manipulate self care tasks by d/c. Goal:: Rachelle to have no more than 1/10 pain while completing ADl/IADls 4/5 trials 80% of the time to promote increased ability to return to PLFO by d/c. Goal:: Rachelle to be mod I to complete edema management techniques 4/5 trials 80% of the time to promote increased ROM and strength for ADL/IADls by d/c. Goal:: Rachelle to complete daily scar massage as directed to promote and manage scar tissue 4/5 trials 80% of the time by d/c. Goal:: Rachelle to be mod I to complete proper wrist mechanics at desk based job 4/5 trials 80% of the time to decrease pain and promote particpation in job by d/c. Goal:: Rachelle to be (I) to return to all ADl/IADls including crocheting 4/5 trials 80% of the time with good wrist mechanics to promote returning to PLOF by d/c. Anticipated Interventions Anticipated Interventions: Early Active Motion, A/AAROM/PROM, Strengthening, Scar Care, Triggerpoint Release, Desensitization, Modalities, Orthoses, Joint Protection/Energy Conservation, Ergonomic Education, Fine Motor Coord/Abdirashid, ADL Training, Caregiver Training, Home Program Please do not hesitate to contact me at [phone] by phone or if you have questions or concerns regarding this new plan of care! Sincerely, Eileen Bond <Electronically signed by Eileen Bond > 03/23/181919 CC: Abhay Lee; Angelo Olivera DO [facility] Signed For Medicare only, by signing this I certify the plan of care. Physicians Signature Date OT GENERAL EVALUATION Observed: 02/21/2018 Status: F Source: [place] 8:53 AM [facility] REPOSITORY [facility] Occupational Therapy [address] [place] [address] Fax REHABILITATION SERVICES INITIAL EVALUATION MR#: [id number] Acct: [id number] Name: RACHELLE JERRY Rep #: [id number] : 1970 47 From: Eileen Bond Referring Dr.: Abhay Lee Status: REG RCR Insurance: [facility] Date: SELF PAY INSURANCE Patient's Visit Information RACHELLE JERRY is a 47 year old F, referred to Occupational Therapy by Abhay Lee, with a diagnosis of Tenosynovectomy R wrist; intersection syndrome. Date of Evaluation: 02/17/18 Occupational Therapist: Eileen Bond - Subjective Subjective: Arrived and noted had surgery on January 27. Notes fell on October 02. 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 Notes uses hands daily. She noted that she 'had surgery to place tendons in correct location and clean out scar tissue'. Cast off last Wednesday. Noted went to [facility] OT no push/pulling for a couple weeks. OT reiterated points and review AROM exercises provided bty [facility]. She is to continue HEP and scar massage form as well as elastomer provided for scar management. - Pain Right Wrist 5 Pain Intensity Range: 2, 9 - ROM Forearm: sup R 0-65, L WNL; Pro R 0-65, L WNL Wrist: Flexion R 0-15, L 0-84; ext R 0-26, L 0-62 MP: WFL PIP: WFL DIP: WFL ROM Comments: radial dev R 0-0, L 0-5. ulnar dev R 0-13, L 0-30 lbs - Strength Oil Pumper: R 24, L 85 lbs Lateral Pinch: R held, L 18 lbs Tripod Pinch: R held, L 17 lbs Tip-to-Tip Pinch: R held , L 8 lbs. Strength Comments: Recebtly out of cast but very painful with all movement as came to OT post work day. Will progressively work on getting fx pincer measurments. - Sensation Sensation Comments: Denies tingling; some numbness around scar and elbow. - In-Hand Manipulation Finger to Palm Translation: Moderate - Right, Normal - Left Palm to Finger Translation: Moderate - Right, Normal - Left Shift: Normal - Right, Normal - Left Rotation: Normal - Right, Normal - Left - DASH-Disabilities of Arm, Shoulder AND Hand DASH Sum: 112 - Goals Goal:: Rachelle to increased R team driver to that of within 20-30 lbs of L nonaffected hand to promote increased strength need to manipulate self care items by d/c. Goal:: Rachelle to increased ROM of R wrist by 10-15 degrees to promote increased mobility of R wrist to increased fx needed to manipulate self care tasks by d/c. Goal:: Rachelle to have no more than 1/10 pain while completing ADl/IADls 4/5 trials 80% of the time to promote increased ability to return to PLFO by d/c. Goal:: Rachelle to be mod I to complete edema management techniques 4/5 trials 80% of the time to promote increased ROM and strength for ADL/IADls by d/c. Goal:: Rachelle to complete daily scar massage as directed to promote and manage scar tissue 4/5 trials 80% of the time by d/c. Goal:: Rachelle to be mod I to complete proper wrist mechanics at desk based job 4/5 trials 80% of the time to decrease pain and promote particpation in job by d/c. Goal:: Rachelle to be (I) to return to all ADl/IADls including crocheting 4/5 trials 80% of the time with good wrist mechanics to promote returning to PLOF by d/c. - Rehabilitation General Assessment: Rachelle arrived for OT evaluation on this date. She had fall October 02 resulting in wrist injury and most recently has tenosynovectomy of R wrist. ROM, strength, and ability to complete ADl/IADls at PLOF is extremely limited. She is back to work at this time but notes increased achiness. OT to work on edema management, scar massage and management, ROM, strength, and returning to all ADL/IADLS at PLOF to promote increased use of R UE at PLOF. Rehabilitation Potential: Excellent - Anticipated Interventions Anticipated Interventions: Early Active Motion, A/AAROM/PROM, Strengthening, Scar Care, Triggerpoint Release, Desensitization, Modalities, Orthoses, Joint Protection/Energy Conservation, Ergonomic Education, Fine Motor Coord/Abdirashid, ADL Training, Caregiver Training, Home Program - Visit Plan Frequency: 2x /Week Duration: 6 Weeks General Plan: OT to promote increased ROM, strength, edema management, pain management through use of modalities, ergonomic and joint protection techiques, as well as increasing fx of R hand to return to PLOF. TEXT: Thank you for the opportunity to evaluate your patient. For Medicare and Medicare HMO plans, please review the plan of care and approve it. It will need to be FAXED BACK to us at [phone] for Medicare purposes. Please let me know if there are questions or concerns regarding this plan of care. Physician Signature: Date: <Electronically signed by Eileen Bond > 02/21/18 0853 CC: Abhay Lee; Angelo Olivera DO [facility] Signed For Medicare only, by signing this I certify the plan of care. Physicians Signature Date CHEST WITH CONTRAST Observed: 11/25/2017 Status: F Source: [place] 3:42 PM [facility] REPOSITORY [facility] [address] [place] [address] Chest WITH Contrast MR#: [id number] Acct: [id number] Name: RACHELLE JERRY Rep #: [id number] : 1970 F 47 From: Fili Melendez MD PCP: Angelo Olivera DO Status: REG CLI Study: Chest WITH Contrast Date of Exam: 11/25/17 Exam# [id number] Ordering Dr: Angelo Olivera DO STUDY: CT CHEST WITH CONTRAST REASON FOR EXAM: Female, 47 years old. Lung nodule RADIATION DOSAGE (If Supplied By Facility): CTDIvol = ( 8.81 ) mGy, DLP = ( 299.94 ) mGycm TECHNIQUE: Transaxial imaging was performed following intravenous administration of 100CC ml of Isovue 300 contrast material. Individualized dose optimization techniques were used for this CT. COMPARISON: Prior study of 04/10/2016 FINDINGS: There are mild fibrotic changes of the lung apices. There are mild diffuse emphysematous changes of the lungs. There is an 8.5 mm calcified granuloma of the right upper lobe abutting the minor fissure. There is no demonstrated pleural abnormality. Normal heart and pericardium. There is a small calcified subcarinal node. There are several calcified right hilar nodes. Normal enhanced pulmonary arteries. Normal aorta arch and descending thoracic aorta. There is mild thoracic dextroscoliosis. There is a stable 6 mm right hepatic lobe cyst. There are stable bilateral thyroidal cysts and/or nodules. CT/Chest WITH Contrast IMPRESSION: 1. Mild fibrotic changes of the lung apices. 2. Mild emphysematous changes of the lungs predominantly involving the upper lobes. 3. Stable 8.5 mm calcified granuloma of the right upper lobe. 4. Small calcified subcarinal and right hilar nodes. 5. Stable 6 mm right hepatic lobe cyst. 6. Stable bilateral thyroid cysts and/or nodules. Electronically Signed: Fili Melendez MD at 16:45 EDT , Service support , CC: Angelo Olivera DO Pump Servicer Helper: Signed THORACIC SPINE 3 Observed: 11/12/2017 Status: F Source: [place] VIEWS 10:51 AM [facility] REPOSITORY [facility] Imaging Services [address] [place] [address] Thoracic Spine 3 Views MR#: [id number] Acct: [id number] Name: RACHELLE JERRY Rep #: [id number] : 1970 F 46 From: Amado Burnett MD PCP: Angelo Olivera DO Status: REG CLI Study: Thoracic Spine 3 Views Date of Exam: 11/12/17 Exam# [id number] Ordering Dr: Angelo Olivera DO STUDY: X-RAY - THORACIC SPINE REASON FOR EXAM: Female, 46 years old. Scoliosis TECHNIQUE: 3 view(s) of the thoracic spine were obtained. COMPARISON: None. FINDINGS: Normal kyphosis of the thoracic spine. There is minimal dextro scoliosis of the thoracic spine. Normal thoracic vertebrae and endplates. Normal disc space heights. 5.5 mm nodule in the mid right lung. The soft tissue structures are unremarkable. RAD/Thoracic Spine 3 Views IMPRESSION: Mild dextro scoliosis of the thoracic spine. Right mid lung nodule. Correlation with prior imaging would be helpful if available. Otherwise, please obtain chest CT follow-up. Electronically Signed: Amado Burnett MD at 17:04 EDT , Service support , CC: Angelo Olivera DO Pump Servicer Helper: Signed LUMBAR SPINE 2 OR 3 Observed: 11/12/2017 Status: F Source: [place] VIEWS 10:51 AM [facility] REPOSITORY [facility] Imaging Services [address] [place] [address] Lumbar Spine 2 or 3 Views MR#: [id number] Acct: [id number] Name: RACHELLE JERRY Rep #: [id number] : 1970 F 46 From: Amado Burnett MD PCP: Angelo Olivera DO Status: REG CLI Study: Lumbar Spine 2 or 3 Views Date of Exam: 11/12/17 Exam# [id number] Ordering Dr: Angelo Olivera DO STUDY: X-RAY - LUMBAR SPINE REASON FOR EXAM: Female, 46 years old. Scoliosis TECHNIQUE: 3 view(s) of the lumbar spine were obtained. COMPARISON: None FINDINGS: Normal lumbar lordosis. There is a levoscoliosis of the lumbar spine. There is 27 degree scoliosis of the lumbar spine at the level of L1-2. There is a normal alignment of the vertebrae. Normal vertebral bodies and endplates. Normal disc space heights. The soft tissue structures are unremarkable. RAD/Lumbar Spine 2 or 3 Views IMPRESSION: There is a levoscoliosis of the lumbar spine. There is 27 degree scoliosis of the lumbar spine at the level of L1-2. Electronically Signed: Amado Burnett MD at 17:04 EDT , Service support , CC: Angelo Olivera DO Pump Servicer Helper: Signed HAND MIN 3 VIEWS Observed: 10/22/2017 Status: F Source: [place] 3:26 PM [facility]IT[facility] Imaging Services [address] [place] [address] Hand Min 3 Views MR#: [id number] Acct: [id number] Name: RACHELLE JERRY Rep #: [id number] : 1970 F 46 From: Sarmad See MD PCP: Angelo Olivera DO Status: REG CLI Study: Hand Min 3 Views Date of Exam: 10/22/17 Exam# [id number] Ordering Dr: Angelo Olivera DO STUDY: X-RAY - RIGHT HAND REASON FOR EXAM: Female, 46 years old. 3 TECHNIQUE: Right hand view(s) of the hand. COMPARISON: FINDINGS: There is no evidence of fracture or dislocation. There are no significant degenerative changes. There are no radiodense foreign bodies. RAD/Hand Min 3 Views IMPRESSION: No fracture or dislocation. Electronically Signed: Sarmad See, at 23:59 EDT Tel , Service support , CC: Angelo Olivera DO Pump Servicer Helper: Signed WRIST MIN 3 VIEWS Observed: 10/22/2017 Status: F Source: [place] 3:26 PM [facility] REPOSIT[facility] Imaging Services [address] [place] [address] Wrist min 3 Views MR#: [id number] Acct: [id number] Name: RACHELLE JERRY Rep #: [id number] : 1970 F 46 From: Bessie Church MD PCP: Angelo Olivera DO Status: REG CLI Study: Wrist min 3 Views Date of Exam: 10/22/17 Exam# [id number] Ordering Dr: Angelo Olivera DO STUDY: X-RAY - RIGHT WRIST REASON FOR EXAM: Female, 46 years old. Continued pain and swelling status post fall 3 weeks ago. TECHNIQUE: 4 view(s) of the wrist were obtained. COMPARISON: October 03, 2017 FINDINGS: Normal visualized distal radius and ulna. Normal radiocarpal articulation. Normal distal radioulnar articulation. Normal carpal bones. Normal carpal articulations. Normal carpometacarpal articulation of the thumb. Normal second through fifth carpometacarpal articulations. Normal visualized metacarpal bones. The soft tissue structures are unremarkable. RAD/Wrist min 3 Views IMPRESSION: There is no acute displaced fracture or dislocation. There is no significant interval change. MRI may provide additional detail assessing for soft tissue/ligamentous injury. Electronically Signed: Bessie Church MD at 7:56 EDT , Service support , CC: Angelo Olivera DO Pump Servicer Helper: Signed KAYLAH Observed: 10/19/2017 Status: COMPLETED Source: [place] 2:45 PM [facility] REPOSITORY Office Visit (MELANIE) RACHELLE JERRY ([id number]) 1970 F Date Time Provider Department 10/19/17 2:45 PM DAISY SANCHEZ During your visit today, we recorded the following information about you: Daisy Sanchez MD 10/19/2017 3:06 PM Signed [facility] [place] Department of Endocrine Surgery Daisy Sanchez M.D. [address] [place] [address] Ms. Rachelle Jerry was seen in the office today in ongoing follow- up for a multinodular goiter. The patient was last seen in the office on 06/09/16. The neck ultrasound performed at that time revealed bilateral nodules. Both were biopsied and found to be benign. She was also ruled out for an abnormal parathyroid lesion biochemically and with a biopsy. She returns today for ongoing follow-up. In the office, she is well-appearing. Inspection of the head and neck reveals no obvious abnormalities. Palpation of the neck reveals no thyromegaly or cervical lymphadenopathy. Ultrasound examination was performed in the office. This revealed a thyroid gland that was overall normal in size with a fine uniform echogenecity. Within the left thyroid lobe, there was a complex nodule measuring 1.20 x 0.86 x 1.43 cm. There were no fine internal calcifications or increased vascularity. At the posterior aspect, there was a hypeochoic nodule measuring 1.24 x 0.50 x 1.98 cm. Within the right thyroid lobe, there was another complex nodule measuring 0.80 x 0.91 x 1.27 cm. There were no fine internal calcifications or increased vascularity. There were a few other subcm nodules bilaterally. No abnormal central or jugular lymphadenopathy was appreciated on ultrasound. In summary, Ms. Jerry is a 46-year-old female with a stable multinodular goiter (left thyroid nodule has decreased in size). Therefore, I plan to see her back in the office in one year for ongoing follow-up. I appreciate being involved in the care of your patient, and please feel free to contact me should you have additional questions or concerns. DAISY SANCHEZ M.D. CC: Angelo Olivera M.D. Naseem Villalobos M.D. 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] Prescriptions as of 10/19/2017 Sig: VENLAFAXINE 100 MG TABLET Take 100 mg by mouth three ti* FLORINEF ORAL Take 0.1 mg by mouth once nehemiah* DESVENLAFAXINE SUCCINATE ER 5* Take 50 mg by mouth once sade* OMEPRAZOLE 40 MG CAPSULE,BRUCE* Take 40 mg by mouth once sade* PANTOPRAZOLE 40 MG TABLET,DEL* Take 1 tablet by mouth once d* PROTONIX 40 MG TABLET,DELAYED* Take one(1) tablet two(2) jennifer* CARAFATE 100 MG/ML ORAL SUSPE* Take (2) teaspoons before eac* Medication notes this encounter FLORINEF ORAL >> Radha Davis Ma 10/19/2017 2:43 PM >> RADHA DAVIS MA Oct 19, 2017 2:43 PM 0.4 daily DESVENLAFAXINE SUCCINATE ER 50 MG TABLET,EXTENDED RELEASE 24 HR >> Radha Davis Ma 10/19/2017 2:43 PM >> RADHA DAVIS MA Oct 19, 2017 2:43 PM PT STATES NOT TAKING MEDICATION ANYMORE Radha Davis Ma OMEPRAZOLE 40 MG CAPSULE,DELAYED RELEASE >> Radha Davis Ma 10/19/2017 2:43 PM >> RADHA DAVIS MA Oct 19, 2017 2:43 PM PT STATES NOT TAKING MEDICATION ANYMORE Radha Davis Ma Problem List As Of Date 10/19/2017 Noted Resolved ACUTE GASTRITIS W/O HEMORRHAGE [K29.00] INVALID FOR* ESOPHAGITIS, UNSPECIFIED [K20.9] INVALID FOR* Abdominal pain, unspecified site [R10.9] INVALID FOR* Constipation [K59.00] INVALID FOR* Encounter Status:Closed by DAISY SANCHEZ MD on 10/19/17 PROGRESS Observed: 10/18/2017 Status: COMPLETED Source: [place] 10:44 AM [facility] REPOSITORY O ID: [id number] Author: Daisy Sanchez Service: (none) Author Type: Physician Type: Progress Notes Filed: 10/19/2017 3:06 PM Note Text: [facility] [place] Department of Endocrine Surgery Daisy Sanchez M.D. [address] [place] [address] Ms. Rachelle Jerry was seen in the office today in ongoing follow- up for a multinodular goiter. The patient was last seen in the office on 06/09/16. The neck ultrasound performed at that time revealed bilateral nodules. Both were biopsied and found to be benign. She was also ruled out for an abnormal parathyroid lesion biochemically and with a biopsy. She returns today for ongoing follow-up. In the office, she is well-appearing. Inspection of the head and neck reveals no obvious abnormalities. Palpation of the neck reveals no thyromegaly or cervical lymphadenopathy. Ultrasound examination was performed in the office. This revealed a thyroid gland that was overall normal in size with a fine uniform echogenecity. Within the left thyroid lobe, there was a complex nodule measuring 1.20 x 0.86 x 1.43 cm. There were no fine internal calcifications or increased vascularity. At the posterior aspect, there was a hypeochoic nodule measuring 1.24 x 0.50 x 1.98 cm. Within the right thyroid lobe, there was another complex nodule measuring 0.80 x 0.91 x 1.27 cm. There were no fine internal calcifications or increased vascularity. There were a few other subcm nodules bilaterally. No abnormal central or jugular lymphadenopathy was appreciated on ultrasound. In summary, Ms. Jerry is a 46-year-old female with a stable multinodular goiter (left thyroid nodule has decreased in size). Therefore, I plan to see her back in the office in one year for ongoing follow- up. I appreciate being involved in the care of your patient, and please feel free to contact me should you have additional questions or concerns. DAISY SANCHEZ M.D. CC: Tana Ag M.D. EMERGENCY DEPARTMENT Observed: 10/03/2017 Status: F Source: [place] SUMMARY 12:20 PM [facility] REPOSITORY [facility] Medical Records Department [address] [place] [address] Emergency Department Summary 10/03/17 1055 MR#: [id number] Acct: [id number] Name: RACHELLE JERRY Rep #: [id number] : 1970 46 From: Paula Bauer MD PCP: Angelo Olivera DO Status: REG ER - ER Visit Summary Date of Service: 10/03/17 Chief Complaint: Right hand and wrist pain. History of Present Illness: The patient is a 46 F presenting with right hand and wrist pain. Patient states she fell onto her outstretched right upper extremity yesterday. She has had persistent pain in her hand and wrist. She tried Aleve at home. She did not hit her head or lose consciousness. Physical Examination: Vitals are stable. Patient is afebrile. Alert no acute distress. HEENT exam is unremarkable. Neck is nontender Lungs are clear and equal bilaterally. Heart is regular rate and rhythm. Abdomen is soft nontender nondistended. Extremities mild diffuse tenderness right hand and wrist. Active full range of motion. No elbow tenderness Skin is warm and dry. Remainder of exam is unremarkable. Emergency Department Course and Treatment: Xray of the right hand and wrist show no acute process. She is given a Velcro wrist splint. Advised to continue NSAIDs. Advised to ice and elevate. Advised to follow-up with her primary care physician. Advised return to ED for worsening complaints. Disposition: Discharged home Impression: Right wrist sprain status post fall This note was generated with [employer] dictation software. It may contain incorrect words, spelling, and punctuation that were not noted in review of the chart prior to signing ED Disposition - Plan for ED Patient: Chief Complaint: Upper Extremity Injury Instructions: ED Sprain Wrist Referrals: Angelo Olivera DO [Primary Care Provider] - What to do if you have Problems For any increased pain, shortness of breath, bleeding, nausea or vomiting, chest pain, or any unexpected problems, contact your Primary Care Provider. Call [facility] ([phone]) or report to the closest Emergency Room. Call 911 if necessary. 10/03/17 1220 <Electronically signed by Paula Bauer MD> Date Paula Bauer MD Cosigner Signature (If Indicated): Date CC: Angelo Olivera DO DISCHARGE INSTRUCTION Observed: 10/03/2017 Status: F Source: [place] 12:19 PM [facility] REPOSITORY [facility] Medical Records Department [address] [place] [address] Discharge Instruction 10/03/17 1219 MR#: [id number] Acct: [id number] Name: RACHELLE JERRY Rep #: [id number] : 1970 46 From: Paula Bauer MD PCP: Angelo Olivera DO Status: REG ER ED Disposition - Plan for ED Patient: Chief Complaint: Upper Extremity Injury Instructions: ED Sprain Wrist Referrals: Angelo Olivera DO [Primary Care Provider] - What to do if you have Problems For any increased pain, shortness of breath, bleeding, nausea or vomiting, chest pain, or any unexpected problems, contact your Primary Care Provider. Call [facility] ([phone]) or report to the closest Emergency Room. Call 911 if necessary. 10/03/17 1219 <Electronically signed by Paula Bauer MD> Date Paula Bauer MD Cosigner Signature (If Indicated): Date CC: Angelo Olivera DO HAND MIN 3 VIEWS Observed: 10/03/2017 Status: F Source: [place] 10:48 AM [facility] REPOSITORY [facility] Imaging Services [address] [place] [address] Hand Min 3 Views MR#: [id number] Acct: [id number] Name: RACHELLE JERRY Rep #: [id number] : 1970 F 46 From: Jerardo Bell DO PCP: Angelo Olivera DO Status: REG ER Study: Hand Min 3 Views Date of Exam: 10/03/17 Exam# [id number] Ordering Dr: Paula Bauer MD STUDY: X-RAY - RIGHT HAND REASON FOR EXAM: Female, 46 years old. Right hand pain after fall yesterday TECHNIQUE: 3 view(s) of the hand. COMPARISON: None. FINDINGS: Normal radiocarpal articulation. Normal distal radioulnar joint. Normal visualized carpal bones. Normal carpal articulations Normal carpometacarpal articulation of the thumb. Normal second through fifth carpometacarpal joints. Normal metacarpi. Normal metacarpophalangeal joint of the thumb. Normal interphalangeal joint of the thumb. Normal proximal and distal phalanges of the thumb. Normal metacarpophalangeal joints of the second through fifth fingers. Normal proximal and distal interphalangeal joints of the second through fifth fingers. Normal phalanges of the second through fifth fingers. The soft tissue structures are unremarkable. RAD/Hand Min 3 Views IMPRESSION: Normal x-ray examination of the hand. Electronically Signed: Jerardo Bell DO at 11:56 EDT Tel , Service support , CC: Paula Bauer MD; Angelo Olivera DO Pump Servicer Helper: Signed WRIST MIN 3 VIEWS Observed: 10/03/2017 Status: F Source: [place] 10:48 AM [facility] REPOSITORY [facility] Imaging Services [address] [place] [address] Wrist min 3 Views MR#: [id number] Acct: [id number] Name: RACHELLE JERRY Rep #: [id number] : 1970 F 46 From: Jerardo Bell DO PCP: Angelo Olivera DO Status: REG ER Study: Wrist min 3 Views Date of Exam: 10/03/17 Exam# [id number] Ordering Dr: Paula Bauer MD STUDY: X-RAY - RIGHT WRIST REASON FOR EXAM: Female, 46 years old. Wrist pain after fall yesterday TECHNIQUE: 3 view(s) of the wrist were obtained. COMPARISON: None. FINDINGS: Normal visualized distal radius and ulna. Normal radiocarpal articulation. Normal distal radioulnar articulation. Normal carpal bones. Normal carpal articulations. Normal carpometacarpal articulation of the thumb. Normal second through fifth carpometacarpal articulations. Normal visualized metacarpal bones. The soft tissue structures are unremarkable. RAD/Wrist min 3 Views IMPRESSION: Normal x-ray examination of the wrist. Electronically Signed: Jerardo Bell DO at 11:57 EDT Tel , Service support , CC: Paula Bauer MD; Angelo Olivera DO Pump Servicer Helper: Signed 12 LEAD ELECTROCARDIOGRAM Observed: 09/30/2017 Status: F Source: [place] 2:57 PM [facility] REPOSITORY [facility] Cardiovascular Services [address] [place] [address] 12 Lead EKG 09/28/17 1209 MR#: [id number] Acct: [id number] Name: RACHELLE JERRY Rep #: [id number] : 1970 46 From: Maikel Sanabria MD Attending Dr: Status: DEP ER Ordering Dr: Paula Bauer MD Date: 09/28/17 Location: ED Sex: F C Admitted: Test Reason : DIZZINESS Blood Pressure : / mmHG Vent. Rate : 067 BPM Atrial Rate : 067 BPM P-R Int : 130 ms QRS Dur : 076 ms QT Int : 386 ms P-R-T Axes : 061 072 059 degrees QTc Int : 407 ms Normal sinus rhythm Normal ECG Confirmed by MAIKEL SANABRIA MD ([id number]), offline editor MARISSA BUSTAMANTE ([id number]) on 09/30/2017 2:57:13 PM Referred By: SIMON Confirmed By:MAIKEL SANABRIA MD 09/30/17 1457 Date Maikel Sanabria MD CC: Paula Bauer MD; Angelo Olivera DO Signed EMERGENCY DEPARTMENT Observed: 09/28/2017 Status: F Source: [place] SUMMARY 3:52 PM [facility] REPOSITORY [facility] Medical Records Department [address] [place] [address] Emergency Department Summary 09/28/17 1304 MR#: [id number] Acct: [id number] Name: RACHELLE JERRY Rep #: [id number] : 1970 46 From: Paula Bauer MD PCP: Angelo Olivera DO Status: DEP ER - ER Visit Summary Date of Service: 09/28/17 Chief Complaint: Dizziness History of Present Illness: The patient is a 46 F with dizziness. Patient states that she has been dizzy with spinning sensation intermittently for the past month. Today she states she felt weak all over and fell to the ground. She had no syncope no loss of consciousness. She did not hit her head. She states she bumped her right knee and right first finger. She has been able to ambulate since. She also complains of fatigue 1 month. She also complains of blood pressure issues which have been ongoing for the past 2 years. 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 On arrival her is requesting an MRI with and without contrast. Physical Examination: Vitals are stable. Patient is afebrile. Alert no acute distress. HEENT exam is unremarkable. Neck is supple. Lungs are clear and equal bilaterally. Heart is regular rate and rhythm. Abdomen is soft nontender nondistended. Extremities are unremarkable. Skin is warm and dry. No focal neurologic deficit. Remainder of exam is unremarkable. Emergency Department Course and Treatment: EKG is sinus rate is 67 with no acute ischemic changes. CBC, chemistries unremarkable. Orthostatics are negative. Patient was given IV fluids, meclizine with improvement. Discussed with Dr. Shabazz and patient will have an MRI brain in ED without contrast. MRI shows no acute process. Patient was given Zofran IV. She is given a prescription for Meclizine. She is advised to follow-up with Dr. Olivera her primary care physician. Advised return to ED if worsening complaints. Disposition: Discharge home Impression: Benign positional vertigo This note was generated with [employer] dictation software. It may contain incorrect words, spelling, and punctuation that were not noted in review of the chart prior to signing ED Disposition - Plan for ED Patient: Chief Complaint: Dizziness Referrals: Angelo Olivera, [Primary Care Provider] - What to do if you have Problems For any increased pain, shortness of breath, bleeding, nausea or vomiting, chest pain, or any unexpected problems, contact your Primary Care Provider. Call [facility] ([phone]) or report to the closest Emergency Room. Call 911 if necessary. 09/28/17 1552 <Electronically signed by Paula Bauer MD> Date Paula Bauer MD Cosigner Signature (If Indicated): Date CC: Angelo Olivera DO DISCHARGE INSTRUCTION Observed: 09/28/2017 Status: F Source: [place] 3:02 PM [facility] REPOSITORY [facility] Medical Records Department [address] [place] [address] Discharge Instruction 09/28/17 1501 MR#: [id number] Acct: [id number] Name: RACHELLE JERRY Rep #: [id number] : 1970 46 From: Paula Bauer MD PCP: Angelo Olivera DO Status: REG ER ED Disposition - Plan for ED Patient: Chief Complaint: Dizziness Instructions: ED BPV Vertigo Prescriptions: Meclizine HCl [Antivert] 12.5 mg PO TID PRN PRN #20 tablet PRN Reason: Vertigo Referrals: Angelo Olivera DO [Primary Care Provider] - What to do if you have Problems For any increased pain, shortness of breath, bleeding, nausea or vomiting, chest pain, or any unexpected problems, contact your Primary Care Provider. Call [facility] ([phone]) or report to the closest Emergency Room. Call 911 if necessary. 09/28/17 1502 <Electronically signed by Paula Bauer MD> Date Paula Bauer MD Cosigner Signature (If Indicated): Date CC: Angelo Olivera DO BRAIN WITHOUT Observed: 09/28/2017 Status: F Source: [place] CONTRAST 1:21 PM [facility] REPOSITORY [facility] Imaging Services [address] [place] [address] Brain without Contrast MR#: [id number] Acct: [id number] Name: RACHELLE JERRY Rep #: [id number] : 1970 F 46 From: Pro Bal MD PCP: Angelo Olivera DO Status: REG ER Study: Brain without Contrast Date of Exam: 09/28/17 Exam# [id number] Ordering Dr: Paula Bauer MD STUDY: MRI BRAIN WITHOUT CONTRAST REASON FOR EXAM: Female, 46 years old. Vertigo, dizzy. No syncope. TECHNIQUE: Standardized multiplanar fat and water weighted pulse sequences were obtained. COMPARISON: None. FINDINGS: No restricted diffusion to suspect acute or subacute ischemic infarct. Normal size of the ventricles and extra-axial spaces for the patient's age. Normal white matter tracts of the supratentorial brain. Normal bilateral basal ganglia. Normal thalami. There is no extra-axial fluid accumulation. Normal flow voids within the major intracranial circulation suggesting patency by spin echo criteria. Normal sella turcica, pituitary gland, infundibular stalk, optic chiasm and hypothalamus. Normal tectal plate and pineal gland. Normal midbrain, olga and medulla. Normal cerebellum. Normal basal cisterns. Normal bilateral temporal bones. Normal bilateral internal auditory canals. No demonstrated orbital abnormality, within the constraints of a routine brain study. Normal visualized paranasal sinuses. Normal calvarium and skull base. Normal visualized soft tissue structures. Normal visualized upper cervical spine. MRI/Brain without Contrast IMPRESSION: Normal unenhanced MRI of the brain. Electronically Signed: Pro Bal MD at 14:52 EDT , Service support , CC: Paula Bauer MD; Angelo Olivera DO Pump Servicer Helper: Signed CBC W/DIFF, AUTOMATED Collected: 09/28/2017 Status: F Source: [place] 12:19 PM [facility] REPOSITORY TYPE CODE TESTS RESULT OUT OF RANGE REFERENCE UNITS LAB L100.1000 4.4-11.0 K/mm3 Normal WBC 8.6 LAB L100.1200 4.2-5.4 M/mm3 Normal RBC 4.57 LAB L100.1300 12.0-15.0 g/dl Normal HGB 13.5 LAB L100.1400 37-47 % Normal HCT 40.8 LAB L100.1500 81-99 fL Normal MCV 89.3 LAB L100.1600 27.0-32.0 pg Normal MCH 29.5 LAB L100.1700 32-36 g/gl Normal MCHC 33.1 LAB L100.1810 11.6-14.6 % Normal RDW CV 13.9 LAB L100.1820 35.1-43.9 fl High RDW SD 45.0 LAB L100.1900 150-450 K/mm3 Normal PLT 295 LAB L100.2000 6.2-12.0 fl Normal MPV 9.5 LAB L100.2100 47-70 % Normal NEUT% 61.2 LAB L100.2200 19-41 % Normal LY% 30.5 LAB L100.2300 0-10 % Normal MONO% 7.0 LAB L100.2400 0-5 % Normal EO% 0.7 LAB L100.2500 0-1 % Normal BASO% 0.5 LAB L100.2550 0.0-0.9 % Normal IM GRAN % 0.100 Result Comment: IG% - Immature Granulocytes (promyelocytes, myelocytes and metamyelocytes) > 1% indicates that a LEFT SHIFT is Present. LAB L100.2620 2.0-7.7 X10 3/uL Normal Absolute Neut 5.2 LAB L100.2720 0.83-4.51 X10 3/ul Normal Absolute Lymph 2.61 Performed By: #### L100.0100 #### [facility] [address]. [place], [place], [address] BASIC METABOLIC Collected: 09/28/2017 Status: F Source: [place] FIELD PROFILE (BMP) 12:19 PM [facility] REPOSITORY TYPE CODE TESTS RESULT OUT OF RANGE REFERENCE UNITS LAB L501.0100 74-106 mg/dL Normal GLU 90 Result Comment: Please note revised GLUCOSE reference range effective 2017. LAB L501.1000 7-18 mg/dL Normal BUN 11 LAB L501.1100 0.55-1.02 mg/dL Normal CREAT,SERUM 0.60 Result Comment: The validity of the calculated GFR AND GFRAA in patients over 70 years has not been determined. Clinical correlation is essential. LAB L501.1110 >60 mL/min Normal EST GFR 114 Result Comment: Non- GFR Calc LAB L501.1115 >60 mL/min Normal EST GFR - AA 138 Result Comment: GFR Calc LAB L501.1255 ml/min Normal Estimated CRCL 121.14 LAB L501.1300 10-20 RATIO BUN/CRE Normal 18.4 LAB L501.2200 8.5-10 mg/dL .1 CA Normal 8.5 LAB L501.5300 136-14 mmol/L 5 NA Normal 141 LAB L501.5600 3.5-5. mmol/L Low 1 K 3.3 LAB L501.5900 98-107 mmol/L High CL 108 LAB L501.6100 21.0-3 mmol/L 2.0 CO2 Normal 28.0 LAB L501.6200 5-15 GAP Normal 5 Performed By: #### L500.2500 #### [facility] [address] [place], [place], [address] ALLERGIES ALLERGIES DATE TYPE / CODE NAME / CODE REACTION SEVERITY SOURCE Drug Penicillins/F00 Hives Unknown [place] 8 Allergy/687338139( 1345103(RXNORM) [facility] SNOMED CT) Hospital Repository Drug codeine/J223644 Hives Unknown [place] 8 Allergy/955042306( 550(RXNORM) [facility] SNOMED CT) Hospital Repository Drug banana/[id number] Angioedema Unknown [place] 8 Allergy/171855502( 77(RXNORM) [facility] SNOMED CT) Hospital Repository Miscellaneous CANTILOPE Anaphylaxis Unknown [place] 8 Allergy/529901218( [facility] SNOMED CT) Hospital Repository DRUG PENICILLIN HIVES [place] 5 INGREDI/590094536( [facility] SN[facility]) [place] Repository DRUG CODEINE [place] 7 INGREDI/176715829( [facility] SNOMED [facility]) [place] Repository ENCOUNTERS ENCOUNTERS ADMIT/DISCHARGE ACCOUNT ADMITTING ENCOUNTER LOCATION SOURCE NUMBER CLASS 06/21/2018 [id number] Ambulatory [facility] ing:BFHLAB Repository 04/20/2018/04/20/20 [id number] Ambulatory [address] ing:OT Repository 11/25/2017 [id number] Ambulatory [facility] ing:CT Repository 11/12/2017 [id number] Ambulatory [facility] ing:RAD Repository 10/22/2017 [id number] Ambulatory [facility] ing:MTRAD Repository 10/19/2017/10/21/19 [id number] Ambulatory [address] Repository 10/03/2017/10/04/19 [id number] Emergency [address] ing:ED Repository 09/28/2017/09/29/19 [id number] Emergency [address] ing:ED Repository PAYERS PAYERS ENCOUNTER GUARANTOR PAYER SUBSCRIBER SOURCE 06/21/2018 RACHELLE [id number] Primary RACHELLE Medeiros [facility]OMAC Insurance:EMA RICHARDSON: [facility] Number: [id number] Hospital 04161Fcr: (634) [id number] Repository [phone] (HP) Date:0483-59-52LQ [address] [place] [phone]: 06/21/2018 Secondary NOT GIVENUNK [place] Insurance:SELF PAY [facility] Number: Effective Repository Date:2018-06-21 04/20/2018 RACHELLE LEAL5 Primary RACHELLE Ed [place] Insurance:[facility]: [place] CAREPolicy Number: [id number] Hospital 285[address]Huz: (330) [id number] Repository [phone] (HP) Date:8690-09-61JK [address] [place] [phone]: 04/20/2018 Secondary NOT GIVENUNK [place] Insurance:SELF PAY [facility] Number: Effective Repository Date:2018-02-14 11/25/2017 RACHELLE LEAL5 Primary RACHELLE [place] Insurance:[facility]: [place] CARE[place] Number: [id number] Hospital 06073Hut: (330) [id number] Repository [phone] (HP) Date:[id number] [address] [place] [phone]: 11/25/2017 Secondary NOT GIVENUNK [place] Insurance:SELF PAY [facility] Number: Effective Repository Date:2017-11-16 11/12/2017 RACHELLE LEAL5 Primary RACHELLE [place] Insurance:[facility]: [place] CARE[place] Number: [id number] Hospital 36555Gug: (330) [id number] Repository [phone] (HP) Date:3890-15-71BX [address] [place] [phone]: 11/12/2017 Secondary NOT GIVENUNK [place] Insurance:SELF PAY [facility] Number: Effective Repository Date:2017-11-12 10/22/2017 RACHELLE LEAL5 Primary RACHELLE Ward [place] [facility]: [place] CAREPolicy Number: [id number] Hospital 355[address]Nlz: (330) [id number] Repository [phone] (HP) Date:9921-53-35QE [address] [place] [phone]: 10/22/2017 Secondary NOT GIVENUNK [place] Insurance:SELF PAY [facility] Hospital Number: Effective Repository Date:2017-10-22 10/03/2017 RACHELLE LEAL5 Primary RACHELLE [place] Insurance[facility]: [id number] Hospital [address]47[address]Gya: (330) [id number] Repository [phone] (HP) Date:[id number] [facility] [address] [place] [phone]: 10/03/2017 Secondary NOT GIVENUNK [place] Insurance:SELF PAY [facility] Number: Effective Repository Date:2017-10-03 09/28/2017 RACHELLE LEAL5 Primary RACHELLE Ward [place] Insurance:[facility] GARCIA: [facility] Number: [id number] Hospital 632[address]Qff: (330) [id number] Repository [phone] (HP) Date:1306-09-00AB [address] [place] [phone]: 09/28/2017 Secondary NOT GIVENUNK [place] Insurance:SELF PAY [facility] Number: Effective Repository Date:2017-09-28
== END ==
PROVIDERS: Family Provider Family Medicine; PCP Family Medicine; Visit Provider Family Medicine
DX: R50.9 Fever, unspecified (principal); M79.10 Myalgia, unspecified site
CPT/HCPCS: 36415; 80053; 81001; 82550; 85025; 85652; 86140; 87086; 87088

== ENCOUNTER 2021-01-23 09:32 | Emergency (ER) | payer OTHER, SELFPAY ==
[2021-01-23 09:33] VITALS: BP 146/77; PULSE 72; RESP 17; TEMP 36.4; O2SAT 98; BMI 27.3
--- NOTE | 2021-01-23 09:39 | CT_ITS ---
STUDY: CT ABDOMEN AND PELVIS WITHOUT CONTRAST REASON FOR EXAM: Female, 50 years old. Right flank pain with radiation into the right lower quadrant. History of kidney stones. RADIATION DOSAGE (If Supplied By Facility): CTDIvol = ( 9.46 ) mGy, DLP = ( 479.65 ) mGycm TECHNIQUE: Transaxial images were obtained from the dome of the diaphragm to the symphysis pubis without oral contrast, and without intravenous contrast. Sagittal and coronal images were reconstructed. Individualized dose optimization techniques were used for this CT. COMPARISON: Comparison is made with prior study dated 04/12/2017. FINDINGS: Minimal increased markings at the lung bases suggestive of linear atelectasis and/or scarring. The visualized portions of the heart are within normal limits. Normal liver. Normal gallbladder and extrahepatic biliary system. Normal spleen. Normal pancreas. Normal bilateral adrenal glands. Normal right kidney. 2.5 mm nonobstructive calculus in the upper pole calyx of the left kidney. 2 mm calculus in the lower pole calyx of the left kidney. There is a small hiatal hernia. Normal small intestine. Normal colon. The appendix is visualized and appears normal. Normal abdominal aorta. Normal inferior vena cava. Normal retroperitoneum. Normal urinary bladder. There is absence of the uterus consistent with a prior hysterectomy. Normal abdominal wall. Levoscoliosis. Disc space narrowing at the L4-L5 and L5-S1 levels. CT/Abdomen/Pelvis without Cont IMPRESSION: Nonobstructive left intrarenal calculi. Electronically Signed: Keith Escalante MD at 11:10 EDT , Service support ,
--- NOTE | 2021-01-23 09:40 | EDS_ITS ---
HPI History of Present Illness Chief Complaint: Flank Pain Informant: patient Onset/Context/Timing Onset: Hours (1.5 hours prior to presentation) Context: Sudden Onset Timing: Continuous Quality: Pain Location: Right flank radiating to right inguinal area Current Severity: Severe Maximum Severity: Severe Worsened by: Nothing Relieved by: Nothing Associated Symptoms Associated Symptoms: Nausea and urgency Narrative Narrative: Patient is a middle-aged woman who presents with abrupt onset of right flank pain radiated anteriorly to the inguinal area. She reports urgency and nausea. She states she is in significant discomfort. She denies fever, chills night sweats. She denies hematuria or dysuria. She denies cough, shortness of breath or difficulty breathing. She denies chest discomfort. There is no history of trauma. She states a friend drove her to the emergency department. Prior similar symptoms: No Recent Illness/Hospitalization: No PFSH PFS Medical History (Updated 01/23/21 @ 11:[address] Ramírez Mccloud MD) History of trigger finger Intersection syndrome of wrist no medical history Home Medications venlafaxine 150 mg PO DAILY 04/12/17 [History Last Taken 09/28/17] quetiapine 100 mg PO DAILY 01/23/21 [History Last Taken Unknown] venlafaxine 76 mg PO DAILY 01/23/21 [History Last Taken Unknown] Allergy/AdvReac Type Severity Reaction Status Date / Time banana Allergy Angioedema Verified 01/23/21 09:32 codeine AdvReac Hives Verified 01/23/21 09:32 Penicillins [PCN] AdvReac Hives Verified 01/23/21 09:32 CANTILOPE Allergy Anaphylaxis Uncoded 01/23/21 09:32 Surgical History (Updated 01/23/21 @ 10:41 by Kameron Swanson) History of cystoscopy History of partial hysterectomy Social History (Updated 01/23/21 @ 09:[address] Ramírez Mccloud MD) household members: spouse Smoking Status: Current every day smoker alcohol intake: current alcohol intake frequency: holidays/special occasions only substance use type: does not use ROS ROS ED Constitutional Constitutional ED: Denies chills, fever(s), subjective or sweats Eyes Eyes: Denies change in vision ENT ENT ED: Denies ear pain, rhinorrhea or sore throat Cardiovascular Cardiovascular: Denies chest pain or palpitations Respiratory/Chest Respiratory/Chest: Denies cough, dyspnea or dyspnea on exertion Gastrointestinal Gastrointestinal: Reports abdominal pain and nausea; Denies constipation, diarrhea or vomiting Genitourinary Genitourinary ED: Reports urinary frequency; Denies dysuria or hematuria Musculoskeletal Musculoskeletal: Reports back pain; Denies arthralgias, myalgias or neck pain Integumentary Denies abscess or rash Neurologic Neurologic: Denies headache(s) or weakness EXAM Physical Exam Const Vital Signs: 01/23/21 09:33 Temperature 97.6 F L Temperature Source Temporal Pulse Rate 72 Respiratory Rate 17 Blood Pressure 146/77 H Blood Pressure Mean 100 Pulse Ox 98 Oxygen Delivery Method Room Air Positive well nourished and well developed General Appearance ED: well developed and other Patient is in obvious discomfort holding her right side. She is diaphoretic. ; Negative for pallor HEENT HEENT Narrative: Face is symmetric. Ears normal. Nares patent. Eyes PERRL and EOMs intact bilaterally General Eye ED: Negative for pale conjunctiva or scleral icterus Neck supple Resp normal respiratory effort and clear to auscultation bilaterally Cardio regular rate, regular rhythm, S1 normal heart sound, S2 normal heart sound and no murmurs GI normal to inspection, nondistended, normoactive bowel sounds and non-tender Palpation: soft Back/Spine no CVA tenderness Thoracic Spine / Upper Back: Negative for thoracic spinal tenderness or paraspinal muscle tenderness Lumbar Spine / Lower Back: Negative for lumbar spinal tenderness Extremity normal to inspection General Extremety ED: Negative for edema or tenderness General Extremity: Negative for edema Neuro oriented x3, CN's II-XII intact bilaterally and no sensory deficits noted Sensorium / Orientation: alert Motor Exam: strength 5/5 throughout Psych mental status grossly normal Skin no rashes or lesions noted and no wounds General Skin Exam: Negative for jaundice or pallor MDM MDM MDM Narrative Medical decision making narrative: Patient presents with abrupt onset of right flank pain. Patient's history is suggestive of an obstructing right ureteral stone. Included differential note need to consider aortic aneurysm and dissection. Patient was medicated with Zofran for her nausea and Toradol and morphine for her pain. She states she has had morphine in the past. She does list hives to codeine. Appropriate labs were obtained as well as CT of the abdomen pelvis with out contrast. Patient was reassessed at 1002. She still is in obvious discomfort. 1 mg Dilaudid was ordered. Lab Data Attestation: I reviewed the patient's lab results. Labs: Laboratory Results - last 24 hr 01/23/21 01/23/21 09:45 09:45 WBC 9.9 RBC 4.50 Hgb 13.5 Hct 41.0 MCV 91.1 MCH 30.0 MCHC 32.9 RDW Std Deviation 43.5 RDW Coeff of Marcela 13.0 Plt Count 342 MPV 9.3 Immature Gran % (Auto) 0.300 Neut % (Auto) 57.6 Lymph % (Auto) 34.6 [place] % (Auto) 5.9 Eos % (Auto) 1.1 Baso % (Auto) 0.5 Absolute Neuts (auto) 5.7 Absolute Lymphs (auto) 3.42 Nucleated RBC % 0 Sodium 138 Potassium 3.6 Chloride 105 Carbon Dioxide 24.0 Anion Gap 9 BUN 15 Creatinine 0.93 Estim Creat Clear Calc 72.19 Est GFR (MDRD) Af Amer 82 Est GFR (MDRD) Non-Af 67 BUN/Creatinine Ratio 16.1 Glucose 122 H Calcium 9.0 Radiography Diagnostic Testing: Radiology Impression Abdomen/Pelvis CT 01/23/21 09:39 IMPRESSION: Nonobstructive left intrarenal calculi. Electronically Signed: Keith Escalante MD at 11:10 EDT , Service support , Treatment and Re-Evaluation Comments:: Per my review there is a small stone in the bladder. Patient presently is pain-free. Discharge Plan Triage Chief Complaint: Flank Pain ED Provider: Ramírez Mccloud Dx/Rx/DC Orders Clinical Impression: Stone, bladder, Calculus of left kidney, Renal colic on right side Instructions: ED Kidney Stone, Passed Prescriptions: No Action venlafaxine 100 MG tablet 150 mg PO DAILY RF: 0 venlafaxine 37.5 mg capsule,extended release 24hr 76 mg PO DAILY RF: 0 quetiapine 100 mg tablet 100 mg PO DAILY RF: 0 Primary Care Provider: Angelo Olivera Referrals: Angelo Olivera DO [Primary Care Provider] - As Needed Disposition Disposition: Home, Self Care
[2021-01-23] MEDS: Ondansetron 4 MG/2 ML Vial IV (09:47)
[2021-01-23] MEDS: Ketorolac 15 MG/ML Vial IV (09:48)
[2021-01-23] MEDS: Morphine 4 MG/ML Syringe IV (09:48)
[2021-01-23 09:54] LABS: Absolute Lymphocyte Count 3.42 X10^3/uL (0.83-4.51); Absolute Neutrophil Count 5.7 X10^3/uL (2.0-7.7); Basophil# 0.05 X10^3/uL; Basophil% 0.5 % (0-1); Eosinophil# 0.11 X10^3/uL; Eosinophils% 1.1 % (0-5); Hemoglobin 13.5 g/dL (12.0-15.0); Lymphocyte # 3.42 X10^3/ul (0.83-4.51); Lymphocyte % 34.6 % (19-41); Mean Corp Hgb Conc 32.9 g/dL (32-36); Mean Corpuscular Volume 91.1 fL (81-99); Mean Platelet Vol. 9.3 fl (6.2-12.0); Monocyte# 0.58 X10^3/uL; Monocyte% 5.9 % (0-10); NRBC Flagged by Analyzer 0 % (0-5); Neutrophil % 57.6 % (47-70); Platelet Count 342 K/mm3 (150-450); RBC Distribution Width SD 43.5 fl (35.1-43.9); White Blood Count 9.9 K/mm3 (4.4-11.0)
[2021-01-23] MEDS: 0.9% Normal Saline 1,000 ML 250 ML IV (10:02)
[2021-01-23 10:05] LABS: Anion Gap 9 (5-15); BUN 15 mg/dL (7-18); BUN/Creat Ratio 16.1 RATIO (10-20); Chloride 105 mmol/L (98-107); Creatinine, Serum 0.93 mg/dL (0.55-1.02); EST Glomerular Filtration Rate 67 mL/min (>60); Est Glom Filt Rate - Afr Amer 82 mL/min (>60); Estimated Creatinine Clearance 72.19 ml/min; Glucose 122 mg/dL (74-106); Potassium 3.6 mmol/L (3.5-5.1); Sodium Level 138 mmol/L (136-145)
[2021-01-23] MEDS: HYDROmorphone 1 MG/ML Syringe IV (10:37)
[2021-01-23 11:44] VITALS: BP 135/81; BP 135/84; PULSE 75; RESP 16; RESP 18; O2SAT 99
== END 2021-01-23 11:46 | disposition home or self-care (01) ==
PROVIDERS: Emergency Provider Emergency Medicine; PCP Family Medicine
DX: N21.0 Calculus in bladder (principal); F17.200 Nicotine dependence, unspecified, uncomplicated
CPT/HCPCS: 74176; 80048; 85025; 96361; 96374; 96375; 99283; J7030; J2405

== ENCOUNTER → 2021-03-19 15:45 | Outpatient (CLI) | payer OTHER, SELFPAY ==
--- NOTE | 2021-03-19 15:47 | CT_ITS ---
STUDY: LOW DOSE CT LUNG CANCER SCREENING REASON FOR EXAM: Female, 50 years old. FAM HX LUNG CA RADIATION DOSAGE (If Supplied By Facility): CTDIvol = ( 2.39 ) mGy, DLP = ( 86.08 ) mGycm TECHNIQUE: No contrast was administered. Low dose technique was utilized (average mAS-38 and kVp 120). 1.25 mm axial source images with a slice interval of 1.25-mm were reconstructed in lung windows. 2.5 mm axial source images with a slice interval of 2.5-mm were reconstructed in lung windows. 5.0 mm axial source images with a slice interval of 5.0-mm were reconstructed in soft tissue windows. Nodule measured using lung windows on PACS and/or independent workstation with automated measurement of minimum and maximum diameter. Nodule measurement reported as average diameter rounded to the nearest whole number. Growth is defined as an increase ins size of greater than 1.5 mm. COMPARISON: Comparison is made with prior study dated 11/25/2017. NODULES: Stable calcified granuloma in the anterior aspect of the right upper lobe. Emphysema: Stable scarring at both lung apices. Mild degree of emphysematous changes slightly worse in the upper lobes. Minimal linear markings at the left lung base suggestive of scarring. Minimal linear scarring in the medial aspect of the right mandible. Endobronchial lesion: Aorta: Minimal plaque at the level of the aortic arch. Coronary arteries: Unremarkable. Mediastinal nodes: Stable small calcified subcarinal lymph node. Stable calcified right hilar lymph nodes. Other chest and abdominal findings: Degenerative changes of the dorsal spine. CT/Low Dose CT Lung Screening IMPRESSION: Lung-RADS category 2 - Continue annual screening with LDCT in 12 months. IMPORTANT NOTES FOR USE: ACR Lung-RADS Version 1.1 Assessment Categories Release Date: 2018 Category: Coded 0-4 bases on nodule(s) with highest degree of suspicion. Negative screen is defined as categories 1 and 2; a positive screen is defined as categories 3 and 4. Category 3 and 4A nodules that are unchanged on interval CT should be coded as category 2, and individuals returned to screening in 12 months. Category 4X: Category 3 or 4 nodules with additional imaging findings that increase the suspicion of lung cancer, such as spiculation, GGN that doubles in size in 1 year, enlarged lymph notes, etc. Category Modifiers: S (significant finding unrelated to lung cancer) Electronically Signed: Keith Escalante MD at 13:40 EDT , Service support ,
== END ==
PROVIDERS: PCP Family Medicine; Referring Provider Family Medicine; Visit Provider Family Medicine
DX: Z12.2 Encounter for screening for malignant neoplasm of respiratory organs (principal); Z87.891 Personal history of nicotine dependence; Z80.1 Family history of malignant neoplasm of trachea, bronchus and lung
CPT/HCPCS: 71271

== ENCOUNTER → 2021-04-25 15:18 | Outpatient (CLI) | payer OTHER, SELFPAY ==
--- NOTE | 2021-04-25 15:40 | BI_ITS ---
MAMMOGRAPHY - BILATERAL SCREENING REASON FOR EXAM: Female, 50 years old. Routine annual screening examination. PERTINENT HISTORY: Mother with breast cancer. TECHNIQUE: Digital bilateral breast liu (3D mammographic acquisition) in the CC and MLO projections. 2-D mediolateral oblique (MLO) and craniocaudad (CC) views of both breasts were obtained. CAD: Full Field Digital Mammography with Computer Added Detection was performed. COMPARISON: Comparison is made with prior study dated 11/19/2016 and 06/06/2014. FINDINGS: Breast Composition: The breasts are heterogeneously dense, which may obscure small masses. There are no dominant masses or suspicious calcifications. No other significant abnormalities are identified. There has been no significant change since the prior study. BI/SCRN MAMM (CAD)W/LIU BILAT IMPRESSION: Stable bilateral screening mammogram. Yearly follow-up mammogram recommended. (A) ASSESSMENT CATEGORY: BIRADS Category 1: Negative. A letter regarding these results will be sent to the patient by the facility within 30 days. Approximately 10% of breast cancers are not detected by mammography. A normal mammogram should not delay biopsy of a clinically suspicious abnormality. [id number] Electronically Signed: Keith Escalante MD at 8:49 EDT , Service support ,
== END ==
PROVIDERS: PCP Family Medicine; Referring Provider Family Medicine; Visit Provider Family Medicine
DX: Z12.31 Encounter for screening mammogram for malignant neoplasm of breast (principal); Z80.3 Family history of malignant neoplasm of breast
CPT/HCPCS: 77063; 77067

== ENCOUNTER 2021-05-09 05:22 | Day surgery (SDC) | payer OTHER, SELFPAY ==
[2021-05-09] VITALS (9 sets, daily range): BP systolic 103–133; BP diastolic 64–83; PULSE 71–94; RESP 16; TEMP 36–36.3; O2SAT 97–100; BMI 26.4
--- NOTE | 2021-05-09 | COLBX_PTH ---
PATIENT: RACHELLE HARLEY LOC: EN U#:[id number] AGE/SX: 50/F ROOM: RE05/09/[address]: Dr. Zachary Walker MD : 1970 BED: DIS: 05/09/2021 SPEC #: [id number] RECD: 05/09/21 13:34 STATUS: JOSE YOAN #: [id number] DUSTIN: 05/09/21 00:[address]: Zachary Walker DEPT: SURGICAL PATHOLOGY RECD BY: John León ENTERED: 05/09/21 13:34 SP TYPE: COLON BX OTHR DR: Dr. Angelo Olivera DO Tissues: Sigmoid colon biopsy Procedures: Surgery Specimen Level IV HEADER OPERATION: Colonoscopy ? open access (MOD) PRE-OP DIAGNOSIS: Screening TISSUE SUBMITTED: Biopsy distal sigmoid MICROSCOPIC DIAGNOSIS Distal sigmoid colon, biopsy: Fragments of hyperplastic polyp. AM:shashank 05/12/2021 MICROSCOPIC DESCRIPTION Slides are reviewed. GROSS DESCRIPTION Received in fixative is one container labeled with the patient's name and designated distal sigmoid. The specimen consists of multiple irregular fragments of light gorman soft tissue that in aggregate measure 1 x 0.3 x 0.1 cm. The specimen is totally submitted in one cassette. / SJ:shashank 05/09/21 TC:5 CPT: 87955
[2021-05-09] MEDS: Lactated Ringers 1,000 ML 15 ML IV (05:40)
--- NOTE | 2021-05-09 06:13 | PCM.HP.STD ---
HPI - General HPI Narrative RACHELLE HARLEY, is a 50 F who presents for surgical consultation regarding a screening colonoscopy. She had a upper and lower endoscopy multiple years ago. She was having stomach issues at that time she is not currently symptomatic. This procedure is being based upon age. No bright red blood per rectum or melena. No family history of colon cancer. No personal history of colon polyps. PFSH Medical History Arthritis Back pain Emphysema, unspecified History of echocardiogram History of steroid therapy History of stress test History of trigger finger Intersection syndrome of wrist Kidney stone Post-menopausal Smoker Home Medications venlafaxine 150 mg PO DAILY 04/12/17 [History Last Taken 09/28/17] venlafaxine 75 mg PO DAILY 01/23/21 [History Last Taken Unknown] multivitamin 1 tab PO DAILY 05/06/21 [History Last Taken Unknown] Allergy/AdvReac Type Severity Reaction Status Date / Time banana Allergy Angioedema Verified 05/09/21 05:40 codeine AdvReac Hives Verified 05/09/21 05:40 Penicillins [PCN] AdvReac Hives Verified 05/09/21 05:40 CANTILOPE Allergy Anaphylaxis Uncoded 05/09/21 05:40 Surgical History (Updated 05/06/21 @ 12:25 by Krystal Bailey) History of cystoscopy History of partial hysterectomy Hx of colonoscopy Social History (Updated 01/23/21 @ 09:[address] Ramírez Mccloud MD) household members: spouse Smoking Status: Current every day smoker tobacco type: cigarettes alcohol intake: current alcohol intake frequency: holidays/special occasions only substance use type: does not use ROS Constitutional Constitutional: Reports systems reviewed and no addt'l complaints, except as documented Cardiovascular Cardiovascular: Denies chest pain Respiratory/Chest Respiratory/Chest: Denies shortness of breath at rest Gastrointestinal Gastrointestinal: Denies abdominal pain, change in bowel habits, hematochezia or melena Vital Signs Vital Signs Vital Signs: 05/09/21 05:57 Temperature 97.1 F L Temperature Source Oral Pulse Rate 94 Respiratory Rate 16 Respiratory Pattern Normal Blood Pressure 133/82 H Blood Pressure Mean 99 Blood Pressure Source Monitor Blood Pressure Position Semi-Fowlers Blood Pressure Location Right Arm Pulse Ox 97 Oxygen Delivery Method Room Air Weight Weight: 174 lb 2.643 oz Body Mass Index (BMI) 26.4 Physical Exam Const alert, oriented x3 and no apparent distress General Appearance: cooperative and comfortable Eyes General Eye: normal appearance of both eyes Neck General: normal visual inspection Chest inspection of chest normal Resp Effort and Inspection: able to speak in complete sentences and symmetric chest movement Auscultation: clear to auscultation bilaterally Cardio regular rate and regular rhythm GI soft to palpation, non-tender and non-distended Extremity no calf tenderness Neuro oriented x3 Psych thought process normal Assessment & Plan Assessment/Plan (1) Screening for intestinal cancer: PLAN: I recommend to the patient a screening colonoscopy with possible biopsy or polypectomy as indicated. She is aware of the technique, benefit, risk, alternatives. She has had an opportunity to ask and have questions answered. She presents via open access today. We will proceed as noted. Zachary Walker M.D., F.A.C.S.
[2021-05-09] MEDS: Midazolam 5 MG/ML Syringe (06:33)
--- NOTE | 2021-05-09 06:55 | OP.COLON_ITS ---
Patient Name: Vy Jerry Procedure Date: 05/09/2021 6:14 AM Date of : 1970 Age: 50 Procedure: Colonoscopy Indications: Screening for colorectal malignant neoplasm Providers: Zachary Walker MD Referring MD: Angelo Olivera Medicines: Midazolam 4.5 mg IV, Meperidine 150 mg IV Patient Profile: Last Colonoscopy: 10 years ago. Complications: No immediate complications. Procedure: Pre-Anesthesia Assessment: - Prior to the procedure, a History and Physical was performed, and patient medications and allergies were reviewed. The patient's tolerance of previous anesthesia was also reviewed. The risks and benefits of the procedure and the sedation options and risks were discussed with the patient. All questions were answered, and informed consent was obtained. Prior Anticoagulants: The patient has taken no previous anticoagulant or antiplatelet agents. ASA Grade Assessment: I - A normal, healthy patient. After reviewing the risks and benefits, the patient was deemed in satisfactory condition to undergo the procedure. After I obtained informed consent, the scope was passed under direct vision. Throughout the procedure, the patient's blood pressure, pulse, and oxygen saturations were monitored continuously. The Colonoscope was introduced through the anus and advanced to the cecum, identified by appendiceal orifice and ileocecal valve. The colonoscopy was performed without difficulty. The patient tolerated the procedure well. The quality of the bowel preparation was good. The ileocecal valve and the appendiceal orifice were photographed. Moderate Sedation: Moderate (conscious) sedation was personally administered by the endoscopist. The following parameters were monitored: oxygen saturation, heart rate, blood pressure, and response to care. Total physician intraservice time was 15 minutes. Scope In: 6:34:35 AM Scope Withdrawal Time 0 hours 9 minutes 50 seconds Scope Out: 6:50:21 AM Total Procedure Duration Time 0 hours 15 minutes 46 seconds Findings: The digital rectal exam findings include non-thrombosed internal hemorrhoids and internal hemorrhoids that prolapse with straining, but spontaneously regress to the resting position (Grade II). A 5 mm polyp was found in the distal sigmoid colon. The polyp was sessile. The polyp was removed with a cold biopsy forceps. Resection and retrieval were complete. The exam was otherwise without abnormality. Impression: - Non-thrombosed internal hemorrhoids and internal hemorrhoids that prolapse with straining, but spontaneously regress to the resting position (Grade II) found on digital rectal exam. - One 5 mm polyp in the distal sigmoid colon, removed with a cold biopsy forceps. Resected and retrieved. - The examination was otherwise normal. Recommendation: - Discharge patient to home. - Resume previous diet. - Continue present medications. - Repeat colonoscopy in 5 years for surveillance based on pathology results. - Telephone my office for pathology results in 1 week. Procedure Code(s): --- Professional --- 46133, Colonoscopy, flexible; with biopsy, single or multiple 48894, 59, Moderate sedation services provided by the same physician or other qualified health pet care assistant performing the diagnostic or therapeutic service that the sedation supports, requiring the presence of an independent trained observer to assist in the monitoring of the patient's level of consciousness and physiological status; initial 15 minutes of intraservice time, patient age 5 years or older Diagnosis Code(s): --- Professional --- Z12.11, Encounter for screening for malignant neoplasm of colon K64.1, Second degree hemorrhoids D12.5, Benign neoplasm of sigmoid colon CPT copyright 2017 [employer]. All rights reserved. The codes documented in this report are preliminary and upon fourth officer review may be revised to meet current compliance requirements. aZchary Walker MD 05/09/2021 6:54:38 AM This report has been signed electronically. Number of Addenda: 0 Note Initiated On: 05/09/2021 6:14 AM
--- NOTE | 2021-05-09 06:56 | OP.CCLET_ITS ---
05/09/2021 Angelo Olivera [address] [place] [address] Re : Colonoscopy procedure for Vy Jerry Dear Dr. Olivera This procedure was performed on Sunday, May 09, 2021. My impressions and recommendations are as follows: Impressions : - Non-thrombosed internal hemorrhoids and internal hemorrhoids that prolapse with straining, but spontaneously regress to the resting position (Grade II) found on digital rectal exam. - One 5 mm polyp in the distal sigmoid colon, removed with a cold biopsy forceps. Resected and retrieved. - The examination was otherwise normal. Recommendations : - Discharge patient to home. - Resume previous diet. - Continue present medications. - Repeat colonoscopy in 5 years for surveillance based on pathology results. - Telephone my office for pathology results in 1 week. My findings are described in the full procedure note, which is enclosed. If I can be of further assistance, please feel free to contact me at Doctor phone number(s): Work: . Sincerely, Zachary Walker MD 05/09/2021 6:54:38 AM This report has been signed electronically.
== END 2021-05-09 07:37 | disposition home or self-care (01) ==
LOC: EN 05:24 → AC 05:25
PROVIDERS: PCP Family Medicine; Referring Provider Family Medicine; Visit Provider Surgery
PROC: 0DJD8ZZ Inspection of Lower Intestinal Tract, Via Natural or Artificial Opening Endoscopic (ICD-10-PCS; CPT 45378; principal; 2021-05-09 06:25)
DX: Z12.11 Encounter for screening for malignant neoplasm of colon (principal); K64.1 Second degree hemorrhoids; D12.5 Benign neoplasm of sigmoid colon; J43.9 Emphysema, unspecified; M19.90 Unspecified osteoarthritis, unspecified site; F17.210 Nicotine dependence, cigarettes, uncomplicated; Z79.899 Other long term (current) drug therapy
CPT/HCPCS: 45380; 88305; 99152; 99153; J7120

== ENCOUNTER 2021-08-24 10:59 | Emergency (ER) | payer OTHER, SELFPAY ==
[2021-08-24 11:00] VITALS: BP 142/91; PULSE 80; RESP 16; TEMP 36.8; O2SAT 100; BMI 26.7
[2021-08-24] MEDS: Ketorolac 15 MG/ML Vial IM (13:16)
[2021-08-24] MEDS: Triamcinolone Acetonide 40 MG/ML Vial IM (13:17)
[2021-08-24] MEDS: Orphenadrine 60 MG/2 ML Ampul IM (13:17)
--- NOTE | 2021-08-24 13:43 | ED.RN ---
PT LEFT PRIOR TO BEING DC, ELOPED AT 1340
--- NOTE | 2021-08-24 13:50 | ED.VIS.BACK ---
HPI History of Present Illness Chief Complaint: Back Narrative Narrative: 50-year-old female presenting with back pain. It is on the left side and has been present for a few days. She states that slowly gradually build. Is worse with twisting and moving. She states he has a history of kidney stones but this does not feel like a kidney stone. He is not have any urinary complaints. She states that she has scoliosis and that she does have back problem the past. She does see a chiropractor but has not seen him yet for this. She denies loss of bladder or bowel control. She denies saddle anesthesia. PFSH PFSH Medical History Arthritis Back pain Emphysema, unspecified History of echocardiogram History of steroid therapy History of stress test History of trigger finger Intersection syndrome of wrist Kidney stone Post-menopausal Smoker Home Medications venlafaxine 150 mg PO DAILY 04/12/17 [History Last Taken 09/28/17] venlafaxine 75 mg PO DAILY 01/23/21 [History Last Taken Unknown] multivitamin 1 tab PO DAILY 05/06/21 [History Last Taken Unknown] Allergy/AdvReac Type Severity Reaction Status Date / Time banana Allergy Angioedema Verified 05/09/21 05:40 codeine AdvReac Hives Verified 05/09/21 05:40 Penicillins [PCN] AdvReac Hives Verified 05/09/21 05:40 CANTILOPE Allergy Anaphylaxis Uncoded 05/09/21 05:40 Surgical History History of cystoscopy History of partial hysterectomy Hx of colonoscopy Social History household members: spouse Smoking Status: Current every day smoker tobacco type: cigarettes alcohol intake: current alcohol intake frequency: holidays/special occasions only substance use type: does not use ROS ROS ED Constitutional Constitutional ED: Denies chills or fever(s) Eyes Eyes: Denies blurry vision or change in vision ENT ENT ED: Denies rhinorrhea or sore throat Cardiovascular Cardiovascular: Denies chest pain or palpitations Respiratory/Chest Respiratory/Chest: Denies dyspnea or sputum Gastrointestinal Gastrointestinal: Denies abdominal pain or nausea Genitourinary Genitourinary ED: Denies dysuria or hematuria Musculoskeletal Musculoskeletal: Reports back pain Integumentary Denies abscess or rash Neurologic Neurologic: Denies headache(s) or weakness EXAM Physical Exam Const Vital Signs: 08/24/21 11:00 Temperature 98.3 F Temperature Source Temporal Pulse Rate 80 Respiratory Rate 16 Blood Pressure 142/91 H Blood Pressure Mean 108 Pulse Ox 100 Oxygen Delivery Method Room Air Positive well nourished General Appearance ED: NAD; Negative for pallor HEENT Reports moist mucous membranes Negative for trauma Eyes PERRL and EOMs intact bilaterally Resp normal respiratory effort and clear to auscultation bilaterally Cardio regular rate and regular rhythm GI normal to inspection, nondistended, normoactive bowel sounds Back/Spine Back/Spine Narrative: Left lumbar paraspinal musculature tenderness. No midline spinal deformity or step-off. Extremity normal to inspection Neuro oriented x3 Sensorium / Orientation: alert Psych mental status grossly normal Skin General Skin Exam: Negative for jaundice or pallor MDM MDM MDM Narrative Medical decision making narrative: Patient presenting with lumbar back pain on the left. She states she did not have any traumatic injury. No signs or symptoms of cauda equina syndrome. She is convinced that this is not from a kidney stone and she thinks it is more musculature. Patient given a shot of Toradol and Norflex as well as Kenalog. I went back to evaluate the patient and she had eloped. At this point I did call the patient and leave a message to see if she wanted muscle relaxers for her pain for home as I did not get to reevaluate her. Impression: 1. Lumbar strain Discharge Plan Triage Chief Complaint: Back ED Provider: Danny De La Torre Dx/Rx/DC Orders Prescriptions: No Action venlafaxine 100 MG tablet 150 mg PO DAILY RF: 0 venlafaxine 37.5 mg capsule,extended release 24hr 75 mg PO DAILY RF: 0 multivitamin Tablet 1 tab PO DAILY RF: 0 Primary Care Provider: Angelo Olivera
== END 2021-08-24 14:00 | disposition left against medical advice (07) ==
PROVIDERS: Emergency Provider Student in an Organized Health Care Education/Training Program; PCP Family Medicine; Visit Provider Student in an Organized Health Care Education/Training Program
DX: S39.012A Strain of muscle, fascia and tendon of lower back, initial encounter (principal); J43.9 Emphysema, unspecified; X58.XXXA Exposure to other specified factors, initial encounter; F17.210 Nicotine dependence, cigarettes, uncomplicated; Z87.442 Personal history of urinary calculi; Z53.21 Procedure and treatment not carried out due to patient leaving prior to being seen by health care provider
CPT/HCPCS: 96372; 99281; 99282

== ENCOUNTER 2021-08-26 11:13 | Outpatient (CLI) | payer OTHER, SELFPAY ==
--- NOTE | 2021-08-26 11:19 | RAD_ITS ---
STUDY: X-RAY - LUMBAR SPINE REASON FOR EXAM: Female, 50 years old. Back pain TECHNIQUE: 5 view(s) of the lumbar spine were obtained. COMPARISON: 2017 FINDINGS: Normal lumbar lordosis. There is a levoscoliosis of the lumbar spine. There is a normal alignment of the vertebrae in the lateral view. There is multilevel endplate spondylosis of the lumbar vertebrae. There is multi-level degenerative disc disease with multi-level disc space narrowing. There is no demonstrated fracture. There is a calcific density projecting to the left of L1 and 2 which could be in the left UPJ RAD/L/S Spine Min 4 Views IMPRESSION: Degenerative changes with a stable levoscoliosis Possible left nephrolithiasis or ureterolithiasis Electronically Signed: Carson Fernández MD at 15:29 EST ,
== END 2021-08-26 23:59 | disposition home or self-care (01) ==
LOC: RAD.FUTURE 11:16 → RAD 11:18
PROVIDERS: PCP Family Medicine; Referring Provider Family Medicine; Visit Provider Family Medicine
DX: M47.816 Spondylosis without myelopathy or radiculopathy, lumbar region (principal); M51.36 Other intervertebral disc degeneration, lumbar region; M48.061 Spinal stenosis, lumbar region without neurogenic claudication
CPT/HCPCS: 72100; 72110

== ENCOUNTER 2021-09-02 07:34 | Emergency (ER) | payer OTHER, SELFPAY ==
[2021-09-02 07:34] VITALS: BP 150/92; PULSE 107; RESP 16; TEMP 36; O2SAT 100; BMI 26.1
--- NOTE | 2021-09-02 07:50 | CT_ITS ---
STUDY: CT ABDOMEN AND PELVIS WITHOUT CONTRAST REASON FOR EXAM: Female, 50 years old. One-day history of left abdominal pain. RADIATION DOSAGE (If Supplied By Facility): CTDIvol = ( 8.31 ) mGy, DLP = ( 429.72 ) mGycm TECHNIQUE: Transaxial images were obtained from the dome of the diaphragm to the symphysis pubis without oral contrast, and without intravenous contrast. Sagittal and coronal images were reconstructed. Individualized dose optimization techniques were used for this CT. COMPARISON: Comparison is made with prior study dated 01/23/2021. FINDINGS: Minimal increased markings at the lung bases suggestive of linear scarring and/or atelectasis. The visualized portions of the heart are within normal limits. Normal liver. Normal gallbladder and extrahepatic biliary system. Normal spleen. Normal pancreas. Normal bilateral adrenal glands. Normal right kidney. 2.5 mm nonobstructive calculus in the mid upper pole calyx of the left kidney. There is also evidence of a 3 mm nonobstructing calculus in the lower pole calyx of the left kidney. Normal visualized stomach. Normal small intestine. Normal colon. The appendix is visualized and appears normal. Normal abdominal aorta. Normal inferior vena cava. Normal retroperitoneum. Normal urinary bladder. There is absence of the uterus consistent with a prior hysterectomy. Normal abdominal wall. Levoscoliosis. Disc space narrowing at the L4-L5 and L5-S1 levels. CT/Abdomen/Pelvis without Cont IMPRESSION: Nonobstructive left intrarenal calculi. Status post hysterectomy. Electronically Signed: Keith Escalante MD at 8:44 EST ,
--- NOTE | 2021-09-02 07:51 | EDS_ITS ---
HPI History of Present Illness Chief Complaint: Flank Pain Informant: patient Narrative Narrative: Patient's having left flank pain for about 11 days. It waxes and wanes but never fully goes away. She feels like she has to urinate little bit more frequently or something has changed. But it is not dysuria. No hematuria. No fevers or chills. When the pain is bad she does get nauseated but has not actually vomited. She does have a history of kidney stones. She was here about 10 days ago. At that point she thought this was definitely not a kidney stone. She ended up eloping. She had had x-rays done that hinted of a left-sided kidney stone. She comes in because the pain is just not getting relieved. Occasionally the pain comes around toward the front. Nothing really makes it better or worse. She has had partial hysterectomy. PFSH PFSH Medical History Arthritis Back pain Emphysema, unspecified History of echocardiogram History of steroid therapy History of stress test History of trigger finger Intersection syndrome of wrist Kidney stone Post-menopausal Smoker Home Medications venlafaxine 150 mg PO DAILY 04/12/17 [History Last Taken 09/28/17] venlafaxine 75 mg PO DAILY 01/23/21 [History Last Taken Unknown] multivitamin 1 tab PO DAILY 05/06/21 [History Last Taken Unknown] cyclobenzaprine 10 mg PO BID PRN #10 tab 09/02/21 [Rx Last Taken Unknown] naproxen 500 mg PO BID #20 tab 09/02/21 [Rx Last Taken Unknown] oxycodone-acetaminophen [Percocet] 1 tab PO Q6H PRN 2 Days #8 tab 09/02/21 [Rx Last Taken Unknown] Allergy/AdvReac Type Severity Reaction Status Date / Time banana Allergy Angioedema Verified 05/09/21 05:40 codeine AdvReac Hives Verified 05/09/21 05:40 Penicillins [PCN] AdvReac Hives Verified 05/09/21 05:40 CANTILOPE Allergy Anaphylaxis Uncoded 05/09/21 05:40 Surgical History History of cystoscopy History of partial hysterectomy Hx of colonoscopy Social History household members: spouse Smoking Status: Current every day smoker tobacco type: cigarettes alcohol intake: current alcohol intake frequency: holidays/special occasions only substance use type: does not use ROS ROS ED Constitutional Constitutional ED: Denies chills, fever(s) or sweats ENT ENT ED: Denies rhinorrhea Cardiovascular Cardiovascular: Denies chest pain or palpitations Respiratory/Chest Respiratory/Chest: Denies cough, dyspnea or sputum Gastrointestinal Gastrointestinal: Reports nausea and other Details: See history of present illness. ; Denies abdominal pain, constipation, diarrhea, melena or vomiting Genitourinary Genitourinary ED: Reports urinary frequency and other Details: See history of present illness. Musculoskeletal Musculoskeletal: Reports back pain Integumentary Denies rash Neurologic Neurologic: Denies paresthesias or weakness Psychiatric Psychiatric: Reports depression Endocrine Endocrinology: Denies polydipsia or polyuria Allergic/Immunologic Allergic/Immunologic ED: Denies mouth swelling or urticaria EXAM Physical Exam Const Vital Signs: 09/02/21 07:34 09/02/21 09:34 Temperature 96.8 F L Temperature Source Temporal Pulse Rate 107 H 70 Respiratory Rate 16 16 Blood Pressure 150/92 H 115/76 Blood Pressure Mean 111 89 Pulse Ox 100 100 Oxygen Delivery Method Room Air Room Air Positive well nourished, well developed and obese General Appearance ED: well developed Nutritional Appearance: obese HEENT Reports moist mucous membranes Eyes General Eye ED: Negative for pale conjunctiva or scleral icterus Neck no JVD Chest Wall inspection of chest normal Resp normal respiratory effort and clear to auscultation bilaterally Effort and Inspection: Negative for pain with movement Auscultation: Negative for rales, rhonchi or wheezes Cardio regular rate and regular rhythm GI normal to inspection, nondistended, normoactive bowel sounds and non-tender Palpation: soft Back/Spine Back/Spine Narrative: Mild left CVA tenderness. No skin changes. No central bony tenderness General Back: CVA tenderness Extremity normal to inspection Extremity Narrative: Peripheral pulses are intact and equal. General Extremety ED: Negative for edema or tenderness General Extremity: Negative for edema Neuro oriented x3 Sensorium / Orientation: alert Psych mental status grossly normal Skin no rashes or lesions noted and no wounds MDM MDM MDM Narrative Medical decision making narrative: Patient CBC is normal. Electrolytes show minimal renal dysfunction with a creatinine of 1.26. Urine is clean. CT scan shows some renal stones but no ureteral stones. No cause for her pain. She does have some lumbar issues that might be a contributor. I now find the patient is also been seeing a chiropractor through this. I will get her on some muscle relaxants and pain meds. Ice rest and gentle stretching may be of benefit. It sounded more like this is likely musculoskeletal back pain. Lab Data Attestation: I reviewed the patient's lab results. Labs: Laboratory Results - last 24 hr 09/02/21 09/02/21 09/02/21 07:45 07:45 09:45 WBC 10.9 RBC 4.90 Hgb 15.0 Hct 44.6 MCV 91.0 MCH 30.6 MCHC 33.6 RDW Std Deviation 45.5 H RDW Coeff of Marcela 13.5 Plt Count 383 MPV 9.6 Immature Gran % (Auto) 0.500 Neut % (Auto) 55.0 Lymph % (Auto) 35.8 [place] % (Auto) 7.3 Eos % (Auto) 0.8 Baso % (Auto) 0.6 Absolute Neuts (auto) 6.0 Absolute Lymphs (auto) 3.90 Nucleated RBC % 0 Sodium 139 Potassium 3.8 Chloride 106 Carbon Dioxide 29.0 Anion Gap 4 L BUN 16 Creatinine 1.26 H Estim Creat Clear Calc 53.29 Est GFR (MDRD) Af Amer 57 L Est GFR (MDRD) Non-Af 47 L BUN/Creatinine Ratio 12.7 Glucose 110 H Calcium 9.6 Urine Color Yellow Urine Clarity Sl. Cloudy Urine pH 7.0 Ur Specific Boykin 1.010 Urine Protein Negative Urine Glucose (UA) Normal Urine Ketones Negative Urine Occult Blood Negative Urine Nitrite Negative Urine Bilirubin Negative Urine Urobilinogen Normal Ur Leukocyte Esterase 25 H Urine RBC 0 SEEN Urine WBC 0 SEEN Ur Squamous Epith Cells 0-5 SEEN Amorphous Sediment 2+ Urine Bacteria 0 SEEN Urine Mucus 0 SEEN Radiography Diagnostic Testing: Clinical Impression(s) from Imaging Studies Abdomen/Pelvis CT 09/02/21 07:50 IMPRESSION: Nonobstructive left intrarenal calculi. Status post hysterectomy. Electronically Signed: Keith Escalante MD at 8:44 EST , Discharge Plan Triage Chief Complaint: Flank Pain ED Provider: Aniceto Valero Dx/Rx/DC Orders Clinical Impression: Back pain Instructions: ED Back Pain (Acute or Chronic) Prescriptions: New cyclobenzaprine 10 mg tablet 10 mg PO BID PRN (Reason: muscle spasm) Qty: 10 RF: 0 oxycodone-acetaminophen [Percocet] 5-325 mg tablet 1 tab PO Q6H PRN (Reason: pain) 2 Days Qty: 8 RF: 0 naproxen 500 MG tablet 500 mg PO BID Qty: 20 RF: 0 No Action venlafaxine 100 MG tablet 150 mg PO DAILY RF: 0 venlafaxine 37.5 mg capsule,extended release 24hr 75 mg PO DAILY RF: 0 multivitamin Tablet 1 tab PO DAILY RF: 0 Primary Care Provider: Angelo Olivera Referrals: Angelo Olivera DO [Primary Care Provider] - 3-5 Days if not improving Disposition Disposition: Home, Self Care
[2021-09-02] MEDS: 0.9% Normal Saline 1,000 ML 1000 ML IV (08:02)
[2021-09-02] MEDS: Ketorolac 15 MG/ML Vial IV (08:02)
[2021-09-02] MEDS: Ondansetron 4 MG/2 ML Vial IV (08:03)
[2021-09-02 08:51] LABS: Basophil# 0.07 X10^3/uL; Basophil% 0.6 % (0-1); Eosinophil# 0.09 X10^3/uL; Eosinophils% 0.8 % (0-5); Hematocrit 44.6 % (37-47); Lymphocyte % 35.8 % (19-41); Mean Corp Hgb Conc 33.6 g/dL (32-36); Mean Corpuscular Hgb 30.6 pg (27.0-32.0); Mean Platelet Vol. 9.6 fl (6.2-12.0); Monocyte# 0.79 X10^3/uL; Monocyte% 7.3 % (0-10); NRBC Flagged by Analyzer 0 % (0-5); Neutrophil # 5.99 X10^3/uL (2.7-7.7); Platelet Count 383 K/mm3 (150-450); RBC Distribution Width CV 13.5 % (11.6-14.6); RBC Distribution Width SD 45.5 fl (35.1-43.9); White Blood Count 10.9 K/mm3 (4.4-11.0)
[2021-09-02 08:56] LABS: Anion Gap 4 (5-15); BUN 16 mg/dL (7-18); BUN/Creat Ratio 12.7 RATIO (10-20); Calcium,Total 9.6 mg/dL (8.5-10.1); Chloride 106 mmol/L (98-107); Creatinine, Serum 1.26 mg/dL (0.55-1.02); EST Glomerular Filtration Rate 47 mL/min (>60); Est Glom Filt Rate - Afr Amer 57 mL/min (>60); Estimated Creatinine Clearance 53.29 ml/min; Glucose 110 mg/dL (74-106); Potassium 3.8 mmol/L (3.5-5.1); Sodium Level 139 mmol/L (136-145)
[2021-09-02 09:34] VITALS: BP 115/76; PULSE 70; RESP 16; O2SAT 100
[2021-09-02 09:59] LABS: Bacteria 0 SEEN /hpf (None Seen); Mucous, Urine 0 SEEN /hpf (<or=2+); Red Blood Cells-Urine 0 SEEN /hpf (0-5); White Blood Cells 0 SEEN /hpf (0-5)
[2021-09-02 10:02] LABS: Color, Urine Yellow (Yellow); Glucose, Dipstick Normal (Normal); Ketone-Dipstick Negative (Negative); Leukocyte Esterase-Dipstick 25 /ul (Negative); Nitrite-Dipstick Negative (Negative); Occult Blood-Urine Negative /ul (Negative); Protein-Dipstick Negative (Negative); Urine Bilirubin Dipstick Negative (Negative); Urine Clarity Sl. Cloudy (Clear); Urine Urobilinogen Normal (Normal)
[2021-09-02 10:14] LABS: Amorphous Sediment 2+; Squamous Epithelial Cells - UA 0-5 SEEN /hpf (5-10)
[2021-09-02 10:56] VITALS: BP 130/83; PULSE 75; RESP 16; O2SAT 100
== END 2021-09-02 10:57 | disposition home or self-care (01) ==
PROVIDERS: Emergency Provider Emergency Medicine; PCP Family Medicine; Visit Provider Emergency Medicine
DX: M54.9 Dorsalgia, unspecified (principal); J43.9 Emphysema, unspecified; F17.210 Nicotine dependence, cigarettes, uncomplicated; E66.9 Obesity, unspecified; Z68.26 Body mass index [BMI] 26.0-26.9, adult; Z87.442 Personal history of urinary calculi
CPT/HCPCS: 74176; 80048; 81001; 85025; 96361; 96374; 96375; 99283; J7030; A4216; J2405

== ENCOUNTER → 2023-06-21 | Outpatient (CLI) | payer OTHER, SELFPAY | END | disposition home or self-care (01) | LOC: LABSPEC 11:07 | PROVIDERS: PCP Family Medicine; Visit Provider Family Medicine | DX: U07.1 COVID-19 (principal) | CPT/HCPCS: 87635 ==

== ENCOUNTER → 2025-01-02 | Outpatient (CLI) | payer OTHER, SELFPAY ==
[2025-01-02 18:25] LABS: Cholesterol 189 mg/dL (<=200); Low Density Lipoprotein Calc. 58 mg/dL; Triglycerides 305 mg/dL; Very Low Density Lipoprotein 61 mg/dL (5-40); cholesterol:hdl ratio screen 2.72
[2025-01-02 18:28] LABS: AST(SGOT) 17 U/L (<=31); Alanine Aminotransfer ALT/SGPT 23 U/L (<=34); Albumin, Serum 4.5 g/dL (3.5-5.0); Alkaline Phosphatase 93 U/L (35-104); Anion Gap 13 (5-15); BUN 12 mg/dL (4-19); BUN/Creat Ratio 16.8 RATIO (10-20); Calcium,Total 9.4 mg/dL (7.6-11.0); Carbon Dioxide 21.9 mmol/L (21.0-32.0); Chloride 103 mmol/L (98-108); Globulin 2.5 g/dL (2.2-4.2); Glucose 98 mg/dL (70-99); Hematocrit 41.3 % (37-47); Hemoglobin 13.7 g/dL (12.0-15.0); Immature Granulocytes Count 0.020 X10^3/uL (0.0-0.0); Mean Corp Hgb Conc 33.2 g/dL (32-36); Mean Corpuscular Volume 89.6 fL (81-99); Mean Platelet Vol. 9.9 fl (6.2-12.0); NRBC Flagged by Analyzer 0 % (0-5); Platelet Count 379 K/mm3 (150-450); Potassium 3.6 mmol/L (3.3-5.1); RBC Distribution Width CV 13.4 % (11.6-14.6); RBC Distribution Width SD 44.3 fl (35.1-43.9); Red Blood Count 4.61 M/mm3 (4.2-5.4); White Blood Count 8.0 K/mm3 (4.4-11.0)
== END | disposition home or self-care (01) ==
LOC: BFHLAB 15:37
PROVIDERS: PCP Family Medicine; Visit Provider Family Medicine
DX: Z00.00 Encounter for general adult medical examination without abnormal findings (principal)
CPT/HCPCS: 36415; 80053; 80061; 84443; 85025

== ENCOUNTER → 2025-01-11 | Outpatient (CLI) | payer OTHER, SELFPAY ==
--- NOTE | 2025-01-11 07:07 | BI_ITS ---
EXAM: SCRN MAMM (CAD)W/LIU BILAT DATE: 01/11/2025 CLINICAL HISTORY: F, Age 54 y/o , SCREENING Mother with breast cancer. TECHNIQUE: SCRN MAMM (CAD)W/LIU BILAT COMPARISON: Prior exam(s) dated April 25, 2021.. FINDINGS: TISSUE DENSITY: There are scattered areas of fibroglandular density. Bilateral Breast Mammographic Findings: No significant masses, calcifications or other abnormalities are identified. No suspicious masses, areas of developing architectural distortion, or suspicious calcifications. There has been no significant interval change. BI/SCRN MAMM (CAD)W/LIU BILAT IMPRESSION: Stable examination. OVERALL FINAL ASSESSMENT BI-RADS 1: NEGATIVE. RECOMMEND ANNUAL MAMMOGRAPHIC SCREENING. RECOMMENDATION: Routine annual follow-up in 1 Year A letter with findings and recommendations will be mailed to the patient. Reading Location: [place] [id number]
--- OUTSIDE RECORDS SUMMARY | 2025-01-11 07:12 | XMS RPT_ITS | CCD ---
Author Organization [facility] Care Team Providers Care Wage Hand Name Role Phone DAISY SANCHEZ Unavailable Unavailable DAISY SANCHEZ Unavailable Unavailable Angelo Olivera Attending Unavailable Angelo Olivera Primary Care Unavailable Dr. Angelo Olivera DO Primary Care Provider Dr. Angelo Olivera DO Attending Provider [phone] Allergies Allergy Classification Reported Allergen(s) Allergy Type Date of Onset Reaction(s) Facility (3 sources) codeine; Translations: [CODEINE] Drug Allergy 7 [facility] Repository (1 source) penicillin; Translations: [PENICILLIN] Drug Allergy 5 [facility] Repository (1 source) Banana Extract Drug Allergy 1 [facility] Repository (1 source) cantaloupe allergenic extract Drug Allergy 2 [facility] Repository (1 source) Penicillins Drug allergy (disorder) 1 [facility] Repository (1 source) Banana Extract Drug Allergy 1 Angioedema [facility] (1 source) cantaloupe allergenic extract Drug Allergy 2 Anaphylaxis [facility] (1 source) Penicillins Propensity to adverse reactions 1 [facility] Medications Current Medications Medication Drug Class(es) Dates Sig (Normalized) Sig (Original) acetaminophen 325 mg / oxyCODONE hydrochloride 5 mg oral tablet (1 source) Opioid Agonist Start: 09-02-2021 take 1 tablet by mouth every six hours as needed for pain Oxycodone-Acetamino phen (Percocet) 5-325 mg tablet Active 1 {tbl} PO EVERY 6 HOURS as needed for pain 8 2 0 September 02, 2021 Back pain Dorsalgia, unspecified cyclobenzaprine hydrochloride 10 mg oral tablet (1 source) Muscle Relaxant Start: 09-02-2021 take 1 tablet by mouth twice daily as needed for muscle spasms Cyclobenzaprine 10 mg tablet Active 10 mg PO TWICE A DAY as needed for muscle spasm 10 September 02, 2021 1:00am Multivitamin Tablet (1 source) Start: 05-06-2021 Multivitamin Tablet Active 1 {tbl} PO DAILY May 06, 2021 12:00am naproxen 500 mg oral tablet (1 source) Nonsteroidal Anti-inflammatory Drug Start: 09-02-2021 take 1 tablet by mouth twice daily Naproxen 500 MG tablet Active 500 mg PO TWICE A DAY September 02, 2021 1:00am 24 hr venlafaxine 37.5 mg extended release oral capsule (2 sources) Serotonin and Norepinephrine Reuptake Inhibitor Start: 01-23-2021 take 1 capsule by mouth once daily Venlafaxine 37.5 mg capsule,extended release 24hr Active 75 mg PO DAILY January 23, 2021 12:00am Start: 04-12-2017 Venlafaxine 10 0 MG tablet Active 150 mg PO DAILY April 12, 2017 12:00am Problems Problem Classification Problem Date Documented Da te Episodic/Chronic Calculus of urinary tract (3 sources) Urinary bladder stone; Translations: [Calculus in bladder] 01-23-2021 Episodic Other screening for suspected conditions (not mental disorders or infectious disease) (1 source) Patient encounter status; Translations: [Encounter for screening for malignant neoplasm of intestinal tract, unspecified] 05-09-2021 Episodic Spondylosis; intervertebral disc disorders; other back problems (1 source) Backache; Translations: [Dorsalgia, unspecified] 09-10-2021 Episodic Results Test Name Value Interpretation Reference Range Facility Absolute lymphocyte countOrd ered By: Angelo Olivera on 01-02-2025 Lymphocytes Auto (Unsp spec) [#/Vol] 3.75 10*3/uL 0.83-4.51 [facility] Absolute neutrophil countOrd ered By: Angelo Olivera on 01-02-2025 Neutrophils (Bld) [#/Vol] 3.4 10*3/uL 2.0-7.7 [facility] Anion gap in Serum or Plasma Ordered By: Angelo Olivera on 01-02-2025 Anion gap [Moles/Vol] 13 mmol/L 5-15 [facility] Automated lymphocyte count a s percentage of total leukocytesOrdered By: Angelo NormanJoselin on 01-02-2025 Lymphocytes/100 WBC Auto (Unsp spec) 46.7 % High 19-41 [facility] BUN/creatinine ratioOrdered By: Angelo NormanJoselin on 01-02-2025 Urea nitrogen/Creatinine [Mass ratio] 16.8 mg/mg 10-20 [facility] Basophil percentageOrdered B y: Angelo NormanJoselin on 01-02-2025 Basophils/100 WBC (Bld) 0.6 % 0-1 [facility] Bilirubin, totalOrdered By: Angelo Olivera on 01-02-2025 Bilirubin [Mass/Vol] mg/dL 0.00-1.30 [facility] CBC W/Diff, Automatedon Absolute Lymph 3.75 X10 3/uL Normal 0.83-4.51 [facility] Comment on above: Performed By: #### L 500.4100, L500.4050, L501.9520, L100.0100 #### [facility] [address] [place], [address] Absolute Neut 3.4 X10 3/uL Normal 2.0-7.7 [facility] Comment on above: Performed By: #### L 500.4100, L500.4050, L501.9520, L100.0100 #### [facility] [address] [place], [address] Basophils/100 WBC (Bld) 0.6 % Normal 0-1 [facility] Comment on above: Performed By: #### L 500.4100, L500.4050, [id number], L100.0100 #### [facility] [address] [place], [address] Eosinophils/100 WBC (Bld) 1.7 % Normal 0-5 [facility] Comment on above: Performed By: #### L 500.4100, L500.4050, L501.9520, L100.0100 #### [facility] [address] [place], [address] Erythrocyte distribution width (RBC) [Ratio] 13.4 % Normal 11.6-14.6 [facility] Comment on above: Performed By: #### L 500.4100, L500.4050, L501.9520, L100.0100 #### [facility] [address] [place], [address] Hematocrit (Bld) [Volume fraction] 41.3 % Normal 37-47 [facility] Comment on above: Performed By: #### L 500.4100, L500.4050, L501.9520, L100.0100 #### [facility] [address] [place], [address] Hemoglobin (Bld) [Mass/Vol] 13.7 g/dL Normal 12.0-15.0 [facility] Comment on above: Performed By: #### L 500.4100, L500.4050, L501.9520, L100.0100 #### [facility] [address] [place], [address] IG% 0.200 Normal 0.0-0.9 [facility] Comment on above: Result Comment: IG% - Immature Granulocytes (promyelocytes, myelocytes and metamyelocytes) > 1% indicates that a LEFT SHIFT is Present. Performed By: #### L 500.4100, L500.4050, L501.9520, L100.0100 #### [facility] [address] [place], [address] Lymphocytes/100 WBC (Bld) 46.7 % High 19-41 [facility] Comment on above: Performed By: #### L 500.4100, L500.4050, [id number], L100.0100 #### [facility] [address] [place], [address] MCH (RBC) [Entitic mass] 29.7 pg Normal 27.0-32.0 [facility] Comment on above: Performed By: #### L 500.4100, L500.4050, [id number], L100.0100 #### [facility] [address] [place], [address] MCHC (RBC) [Mass/Vol] 33.2 g/dL Normal 32-36 [facility] Comment on above: Performed By: #### L 500.4100, L500.4050, [id number], L100.0100 #### [facility] [address] [place], [address] MCV (RBC) [Entitic vol] 89.6 fL Normal 81-99 [facility] Comment on above: Performed By: #### L 500.4100, L500.4050, [id number], L100.0100 #### [facility] [address] [place], [address] Monocytes/100 WBC (Bld) 8.0 % Normal 0-10 [facility] Comment on above: Performed By: #### L 500.4100, L500.4050, [id number], L100.0100 #### [facility] [address] [place], [address] Neutrophils/100 WBC (Bld) 42.8 % Low 47-70 [facility] Comment on above: Performed By: #### L 500.4100, L500.4050, [id number], L100.0100 #### [facility] [address] [place], [address] Nucleated RBC (Bld) [#/Vol] 0 10*3/uL Normal 0-5 [facility] Comment on above: Performed By: #### L 500.4100, L500.4050, [id number], L100.0100 #### [facility] [address] [place], [address] Platelet mean volume (Bld) [Entitic vol] 9.9 fL Normal 6.2-12.0 [facility] Comment on above: Performed By: #### L 500.4100, L500.4050, [id number], L100.0100 #### [facility] [address] [place], [address] Platelets (Bld) [#/Vol] 379 10*3/uL Normal 150-450 [facility] Comment on above: Performed By: #### L 500.4100, L500.4050, [id number], L100.0100 #### [facility] [address] [place], [address] RBC (Bld) [#/Vol] 4.61 10*6/uL Normal 4.2-5.4 [facility] Comment on above: Performed By: #### L 500.4100, L500.4050, [id number], L100.0100 #### [facility] [address] [place], [address] RDW SD 44.3 fl High 35.1-43.9 [facility] Comment on above: Performed By: #### L 500.4100, L500.4050, [id number], L100.0100 #### [facility] [address] [place], [address] WBC (Bld) [#/Vol] 8.0 10*3/uL Normal 4.4-11.0 [facility] Comment on above: Performed By: #### L 500.4100, L500.4050, [id number], L100.0100 #### [facility] [address] [place], [address] Calculated very low density lipoprotein (VLDL) cholesterol measurementOrdered By: Angelo Olivera on 01-02-2025 Calculated very low density lipoprotein (VLDL) cholesterol measurement 61 mg/dL High 5-40 [facility] Carbon dioxide, total [Moles /volume] in Central venous bloodOrdered By: Angelo Olivera on 01-02-2025 CO2 [Moles/Vol] 21.9 mmol/L 21.0-32.0 [facility] Chloride assayOrdered By: Jamie Olivera on 01-02-2025 Chloride [Moles/Vol] 103 mmol/L 98-108 [facility] Comprehensive Metabolic Prof ilon 01-02-2025 Albumin [Mass/Vol] 4.5 g/dL Normal 3.5-5.0 [facility] Comment on above: Performed By: #### L 500.4100, L500.4050, L501.9520, L100.0100 #### [facility] [address] [place], [address] Albumin/Globulin [Mass ratio] 1.8 {ratio} Normal 0.9-2.4 [facility] Comment on above: Performed By: #### L 500.4100, L500.4050, [id number], L100.0100 #### [facility] [address] [place], [address] ALK PHOS 93 U/L Normal 35-104 [facility] Comment on above: Performed By: #### L 500.4100, L500.4050, [id number], L100.0100 #### [facility] [address] [place], [address] ALT [Catalytic activity/Vol] 23 U/L Normal <=34 [facility] Comment on above: Performed By: #### L 500.4100, L500.4050, [id number], L100.0100 #### [facility] [address] [place], [address] AST [Catalytic activity/Vol] 17 U/L Normal <=31 [facility] Comment on above: Performed By: #### L 500.4100, L500.4050, [id number], L100.0100 #### [facility] [address] [place], [address] BUN/CRE 16.8 RATIO Normal 10-20 [facility] Comment on above: Performed By: #### L 500.4100, L500.4050, [id number], L100.0100 #### [facility] [address] [place], [address] Calcium [Mass/Vol] 9.4 mg/dL Normal 7.6-11.0 [facility] Comment on above: Performed By: #### L 500.4100, L500.4050, [id number], L100.0100 #### [facility] [address] [place], [address] Chloride [Moles/Vol] 103 mmol/L Normal 98-108 [facility] Comment on above: Performed By: #### L 500.4100, L500.4050, [id number], L100.0100 #### [facility] [address] [place], [address] CO2 [Moles/Vol] 21.9 mmol/L Normal 21.0-32.0 [facility] Comment on above: Performed By: #### L 500.4100, L500.4050, [id number], L100.0100 #### [facility] [address] [place], [address] Creatinine [Mass/Vol] 0.69 mg/dL Low 0.70-1.20 [facility] Comment on above: Performed By: #### L 500.4100, L500.4050, [id number], L100.0100 #### [facility] [address] [place], [address] GAP 13 Normal 5-15 [facility] Comment on above: Performed By: #### L 500.4100, L500.4050, L501.9520, L100.0100 #### [facility] [address] [place], [address] GFR/1.73 sq M.predicted among non-blacks MDRD (S/P/Bld) [Vol rate/Area] 102 mL/min/{1.73_m2} Normal >60 [facility] Comment on above: Result Comment: mL/m in/1.73m2 CKD-EPI Creatinine Equation (2020) Performed By: #### L 500.4100, L500.4050, L501.9520, L100.0100 #### [facility] [address] [place], [address] Globulin (S) [Mass/Vol] 2.5 g/dL Normal 2.2-4.2 [facility] Comment on above: Performed By: #### L 500.4100, L500.4050, L501.9520, L100.0100 #### [facility] [address] [place], [address] Glucose [Mass/Vol] 98 mg/dL Normal 70-99 [facility] Comment on above: Performed By: #### L 500.4100, L500.4050, L501.9520, L100.0100 #### [facility] [address] [place], [address] Potassium [Moles/Vol] 3.6 mmol/L Normal 3.3-5.1 [facility] Comment on above: Performed By: #### L 500.4100, L500.4050, L501.9520, L100.0100 #### [facility] [address] [place], [address] Sodium [Moles/Vol] 138 mmol/L Normal 133-145 [facility] Comment on above: Performed By: #### L 500.4100, L500.4050, [id number], L100.0100 #### [facility] [address] [place], [address] T BILI < 0.15 Normal 0.00-1.30 [facility] Comment on above: Performed By: #### L 500.4100, L500.4050, [id number], L100.0100 #### [facility] [address] [place], [address] T PROT 7.0 g/dL Normal 5.9-8.4 [facility] Comment on above: Performed By: #### L 500.4100, L500.4050, L501.9520, L100.0100 #### [facility] [address] [place], [address] Urea nitrogen [Mass/Vol] 12 mg/dL Normal 4-19 [facility] Comment on above: Performed By: #### L 500.4100, L500.4050, L501.9520, L100.0100 #### [facility] [address] [place], [address] Eosinophil percentageOrdered By: Angelo Olivera on 01-02-2025 Eosinophils/100 WBC (Bld) 1.7 % 0-5 [facility] Erythrocyte distribution wid th ratioOrdered By: Angelo Olivera on 01-02-2025 Erythrocyte distribution width (RBC) [Ratio] 13.4 % 11.6-14.6 [facility] Erythrocyte distribution wid th standard deviationOrdered By: Angelo Olivera on 01-02-2025 Erythrocyte distribution width (RBC) [Ratio] 44.3 fl High 35.1-43.9 [facility] Glomerular filtration rate ( GFR) estimation/1.73 sq m using serum, plasma, or whole bOrdered By: Angelo Olivera on 01-02-2025 GFR/1.73 sq M.predicted among non-blacks MDRD (S/P/Bld) [Vol rate/Area] 102 mL/min/{1.73_m2} >60 [facility] Comment on above: mL/min/1.73m2 CKD-EP I Creatinine Equation (2020) Hematocrit Auto (Bld) [Volum e fraction]Ordered By: Angelo Olivera on 01-02-2025 Hematocrit (Bld) [Volume fraction] 41.3 % 37-47 [facility] Hemoglobin measurementOrdere d By: Angelo Olivera on 01-02-2025 Hemoglobin (Bld) [Mass/Vol] 13.7 g/dL 12.0-15.0 [facility] Immature granulocytes/100 WB C Auto (Bld)Ordered By: Angelo Olivera on 01-02-2025 Immature granulocytes/100 WBC (Bld) 0.200 % 0.0-0.9 [facility] Comment on above: IG% - Immature Granu locytes (promyelocytes, myelocytes and metamyelocytes) > 1% indicates that a LEFT SHIFT is Present. LDL calc ser/plasOrdered By: Angelo Olivera on 01-02-2025 Cholesterol in LDL [Mass/Vol] 58 mg/dL [facility] Comment on above: Jvqpaapklz=333-036 m g/dL & Higher Hiez=854 mg/dL or greater Laboratory - Chemistry and C hemistry - challengeOrdered By: Angelo Olivera on 01-02-2025 AST [Catalytic activity/Vol] 17 U/L <32 [facility] Lipid Profileon 01-02-2025 CHOL:HDL 2.72 Normal [facility] Comment on above: Performed By: #### L 500.4100, L500.4050, L501.9520, L100.0100 #### [facility] [address] [place], [place], [address] Cholesterol [Mass/Vol] 189 mg/dL Normal <=200 [facility] Comment on above: Result Comment: Chol esterol level, Desirable <200 mg/dL Borderline high cholesterol 200-239 mg/dL High cholesterol >=240 mg/dL Recommendations of the NCEP Adult Treatment Panel for the following risk-cutoff thresholds for the [place] population. Performed By: #### L 500.4100, L500.4050, L501.9520, L100.0100 #### [facility] [address] [place], [address] Cholesterol in HDL [Mass/Vol] 70 mg/dL Normal [facility] Comment on above: Result Comment: [place] onal Cholesterol Education Program (NCEP) guidelines: <40 mg/dL: Low HDL-cholesterol (major risk factor for CHD) >= 60 mg/dL: High HDL-cholesterol (negative risk factor for CHD) HDL-cholesterol is affected by a number of factors, e.g. smoking, exercise, hormones, sex and age. Performed By: #### L 500.4100, L500.4050, L501.9520, L100.0100 #### [facility] [address] [place], [address] Cholesterol in LDL [Mass/Vol] 58 mg/dL Normal [facility] Comment on above: Result Comment: Bord szhwyx=068-181 mg/dL Higher Zlsa=824 mg/dL or greater Performed By: #### L 500.4100, L500.4050, L501.9520, L100.0100 #### [facility] [address] [place], [address] Cholesterol in VLDL [Mass/Vol] 61 mg/dL High 5-40 [facility] Comment on above: Performed By: #### L 500.4100, L500.4050, L501.9520, L100.0100 #### [facility] [address] [place], [address] Triglyceride [Mass/Vol] 305 mg/dL High [facility] Comment on above: Result Comment: The drugs N-Acetylcysteine and Metamizole may falsely depress this assay. Normal range: <150 mg/dL Borderline High: 150-199 mg/dL High: 200-499 mg/dL Very High: >500 mg/dL Performed By: #### L 500.4100, L500.4050, L501.9520, L100.0100 #### [facility] [address] [place], [address] MCV (mean corpuscular volume ) determinationOrdered By: Angelo Olivera on 01-02-2025 MCV (RBC) [Entitic vol] 89.6 fL 81-99 [facility] Mean corpuscular hemoglobin (MCH) determinationOrdered By: Angelo Olivera on 01-02-2025 MCH (RBC) [Entitic mass] 29.7 pg 27.0-32.0 [facility] Mean corpuscular hemoglobin concentration (MCHC) determinationOrdered By: Angelo Olivera on 01-02-2025 MCHC (RBC) [Mass/Vol] 33.2 g/dL 32-36 [facility] Mean platelet volume determi nationOrdered By: Angelo Olivera on 01-02-2025 Platelet mean volume (Bld) [Entitic vol] 9.9 fL 6.2-12.0 [facility] Monocyte percentageOrdered B y: Angelo Olivera on 01-02-2025 Monocytes/100 WBC (Bld) 8.0 % 0-10 [facility] Neutrophil percentageOrdered By: Angelo Olivera on 01-02-2025 Neutrophils/100 WBC (Bld) 42.8 % Low 47-70 [facility] Nucleated red blood cell per centageOrdered By: Angelo Olivera on 01-02-2025 Nucleated RBC/100 WBC (Bld) [Ratio] 0 % 0-5 [facility] Platelet countOrdered By: Jamie Olivera on 01-02-2025 Platelets (Bld) [#/Vol] 379 10*3/uL 150-450 [facility] Potassium measurement (mass/ volume)Ordered By: Angelo Olivera on 01-02-2025 Potassium (Unsp spec) [Mass/Vol] 3.6 mmol/L 3.3-5.1 [facility] RBC Auto (Bld) [#/Vol]Ordere d By: Angelo Olivera on 01-02-2025 RBC (Bld) [#/Vol] 4.61 10*6/uL 4.2-5.4 [facility] Screening total cholesterol/ high density lipoprotein (HDL) cholesterol ratioOrdered By: Angelo Olivera on 01-02-2025 Cholesterol.total/[place] sterol in HDL [Mass ratio] 2.72 {ratio} [facility] Serum creatinine measurement (mass/volume)Ordered By: Angelo Olivera on 01-02-2025 Creatinine [Mass/Vol] 0.69 mg/dL Low 0.70-1.20 [facility] Serum globulin measurementOr dered By: Angelo Olivera on 01-02-2025 Globulin (S) [Mass/Vol] 2.5 g/dL 2.2-4.2 [facility] Serum glucose measurement (m ass/volume)Ordered By: Angelo Olivera on 01-02-2025 Glucose [Mass/Vol] 98 mg/dL 70-99 [facility] Serum or plasma alanine farias otransferase (ALT) measurementOrdered By: Angelo Olivera on 01-02-2025 ALT [Catalytic activity/Vol] 23 U/L <35 [facility] Serum or plasma albumin juju urement (mass/volume)Ordered By: Angelo Olivera on 01-02-2025 Albumin [Mass/Vol] 4.5 g/dL 3.5-5.0 [facility] Serum or plasma albumin/glob ulin mass ratioOrdered By: Angelo Olivera on 01-02-2025 Albumin/Globulin [Mass ratio] 1.8 {ratio} 0.9-2.4 [facility] Serum or plasma alkaline jay sphatase measurementOrdered By: Angelo Oilvera on 01-02-2025 ALP [Catalytic activity/Vol] 93 U/L 35-104 [facility] Serum or plasma calcium juju urement (mass/volume)Ordered By: Angelo Olivera on 01-02-2025 Calcium [Mass/Vol] 9.4 mg/dL 7.6-11.0 [facility] Serum or plasma cholesterol in HDL measurement (mass/volume)Ordered By: Angelo Olivera on 01-02-2025 Cholesterol in HDL [Mass/Vol] 70 mg/dL >40 [facility] Comment on above: National Cholesterol Education Program (NCEP) guidelines:<40 mg/dL: Low HDL-cholesterol (major risk factor for CHD)>= 60 mg/dL: High HDL-cholesterol (negative risk factor for CHD)HDL-cholesterol is affected by a number of factors, e.g. smoking, exercise, hormones, sex and age. Serum or plasma cholesterol measurement (mass/volume)Ordered By: Angelo Olivera on 01-02-2025 Cholesterol [Mass/Vol] 189 mg/dL <201 [facility] Comment on above: Cholesterol level, D esirable <200 mg/dLBorderline high cholesterol 200-239 mg/dLHigh cholesterol >=240 mg/dLRecommendations of the NCEP Adult Treatment Panel for the following risk-cutoff thresholds for the [place] population. Serum or plasma urea nitroge n measurement (mass/volume)Ordered By: Angelo Olivera on 01-02-2025 Urea nitrogen [Mass/Vol] 12 mg/dL 4-19 [facility] Sodium levelOrdered By: Angelo Olivera on 01-02-2025 Sodium [Moles/Vol] 138 mmol/L 133-145 [facility] TSH DL <= 0.005 mIU/L QnOrde red By: Angelo Olivera on 01-02-2025 TSH Qn 0.543 uIU/mL 0.300-4.200 [facility] Thyroid Stim Hormone (TSH)on 01-02-2025 TSH 0.543 uIU/mL Normal 0.300-4.200 [facility] Comment on above: Performed By: #### L 500.4100, L500.4050, L501.9520, L100.0100 #### [facility] [address] [place], [place], [id number] Total proteinOrdered By: uYmi Olivera on 01-02-2025 Protein [Mass/Vol] 7.0 g/dL 5.9-8.4 [facility] [facility] Triglycerides measurementOrd ered By: Angelo Olivera on 01-02-2025 Triglyceride [Mass/Vol] 305 mg/dL High <199 [facility] Comment on above: The drugs N-Acetylcy steine and Metamizole may falsely depress this assay. Normal range: <150 mg/dLBorderline High: 150-199 mg/dLHigh: 200-499 mg/dLVery High: >500 mg/dL White blood cell (WBC) count Ordered By: Angelo Olivera on 01-02-2025 WBC (Bld) [#/Vol] 8.0 10*3/uL 4.4-11.0 [facility] (ENSUMN) RACHELLE JERRY ([id number]) 1970 FDate Time Provider Department10/19/17 2:45 PM DAISY SANCHEZ During your visit today, we recorded the following information about you:Daisy Sanchez MD 10/19/2017 3:06 PM SignedThe [facility] HospitalEndocrinology and Metabolism CarmiDepartment of Endocrine SurgeryDaisy Sanchez M.D.[address] [place] [id number]: [phone]: [phone]. Rachelle Jerry was seen in the office today in ongoing follow-up for amultinodular goiter. The patient was last seen in the office on 06/09/16. Theneck ultrasound performed at that time revealed bilateral nodules. Both werebiopsied and found to be benign. She was also ruled out for an abnormalparathyroid lesion biochemically and with a biopsy. She returns today forongoing follow-up.In the office, she is well-appearing. Inspection of the head and neck revealsno obvious abnormalities. Palpation of the neck reveals no thyromegaly orcervical lymphadenopathy.Ultrasoun d examination was performed in the office. This revealed a thyroidgland that was overall normal in size with a fine uniform echogenecity. Withinthe left thyroid lobe, there was a complex nodule measuring 1.20 x 0.86 x 1.43cm. There were no fine internal calcifications or increased vascularity. Atthe posterior aspect, there was a hypeochoic nodule measuring 1.24 x 0.50 x1.98 cm. Within the right thyroid lobe, there was another complex nodulemeasuring 0.80 x 0.91 x 1.27 cm. There were no fine internal calcifications orincreased vascularity. There were a few other subcm nodules bilaterally. Noabnormal central or jugular lymphadenopathy was appreciated on ultrasound.In summary, Ms. Jerry is a 46-year-old female with a stable multinodular goiter(left thyroid nodule has decreased in size). Therefore, I plan to see her backin the office in one year for ongoing follow-up. I appreciate being involvedin the care of your patient, and please feel free to contact me should you haveadditional questions or concerns.DAISY SANCHEZ M.D.CC:Angelo Olivera M.D.Naseem Villalobos M.D.Referring Provider: DAISY SANCHEZ [[id number]]Allergies As of Date: 10/19/2017 Noted Allergy ReactionCODEINE 09/08/2006PENICILLIN 02/28/2015 4 - HivesDate Reviewed: 10/19/2017Reviewed by: Radha Maynard Ma - Fully AssessedPrimary Visit Diagnosis:Nontoxic multinodular goiter [E04.2]Prescriptions as of 10/19/2017 Sig: VENLAFAXINE 100 MG [...] MG/ML ORAL SUSPE* Take (2) teaspoons before eac*Medication notes this encounter FLORINEF ORAL >> Radha Maynard Ma 10/19/2017 2:43 PM >> RADHA MAYNARD MA Oct 19, 2017 2:43 PM 0.4 daily DESVENLAFAXINE SUCCINATE ER 50 MG TABLET,EXTENDED RELEASE 24 HR >> Radha Maynard Ma 10/19/2017 2:43 PM >> RADHA MAYNARD MA Oct 19, 2017 2:43 PM PT STATES NOT TAKING MEDICATION ANYMORE Radha Maynard Ma OMEPRAZOLE 40 MG CAPSULE,DELAYED RELEASE >> Radha Ryan Ma 10/19/2017 2:43 PM >> RYAN MA RADHA Brijesh Oct 19, 2017 2:43 PM PT STATES NOT TAKING MEDICATION ANYMORE Radha Ryan MaProblem List As Of Date 10/19/2017 Noted Resolved ACUTE GASTRITIS W/O HEMORRHAGE [K29.00] INVALID FOR* ESOPHAGITIS, UNSPECIFIED [K20.9] INVALID FOR* Abdominal pain, unspecified site [R10.9] INVALID FOR* Constipation [K59.00] INVALID FOR* Status:Closed by DAISY SANCHEZ MD on 10/19/17 Normal [facility] PROGRESSon 10-18-2017 PROGRESS HNO ID: [id number] thor: Daisy Kelley: (none)Author Type: PhysicianType: Progress NotesFiled: 10/19/2017 3:06 PMNote Text:[facility] HospitalEndocrinology and Metabolism InstituteDepartment of Endocrine SurgeryDaisy Sanchez M.D.[address] [place], [place] [address]Phone: Oxb: [phone]. Rachelle Jerry was seen in the office today in ongoing follow-up for amultinodular goiter. The patient was last seen in the office on 06/09/16.The neck ultrasound performed at that time revealed bilateral nodules.Both were biopsied and found to be benign. She was also ruled out for anabnormal parathyroid lesion biochemically and with a biopsy. She returnstoday for ongoing follow-up.In the office, she is well-appearing. Inspection of the head and neckreveals no obvious abnormalities. Palpation of the neck reveals nothyromegaly or cervical lymphadenopathy.Ultrasoun d examination was performed in the office. This revealed athyroid gland that was overall normal in size with a fine uniformechogenecity. Within the left thyroid lobe, there was a complex nodulemeasuring 1.20 x 0.86 x 1.43 cm. There were no fine internalcalcifications or increased vascularity. At the posterior aspect, therewas a hypeochoic nodule measuring 1.24 x 0.50 x 1.98 cm. Within the rightthyroid lobe, there was another complex nodule measuring 0.80 x 0.91 x1.27 cm. There were no fine internal calcifications or increasedvascularity. There were a few other subcm nodules bilaterally. Noabnormal central or jugular lymphadenopathy was appreciated on ultrasound.In summary, Ms. Jerry is a 46-year-old female with a stable multinodulargoiter (left thyroid nodule has decreased in size). Therefore, I plan tosee her back in the office in one year for ongoing follow-up. Iappreciate being involved in the care of your patient, and please feelfree to contact me should you have additional questions or concerns.DAISY SANCHEZ M.D.CC:Angelo Olivera M.D.Naseem Villalobos M.D. Normal [facility] Encounters Encounter Date Encounter Type Care Provider Facility Start: 01-02-2025 End: 01-02-[address] [facility] Start: 01-02-2025 End: 01-02-2025 ambulatory Angelo Olivera Facility:[facility] Start: 10-19-2017 End: 10-20-2017 Ambulatory DAISY SANCHEZ [facility] Payers Date Payer Category Payer Self-pay 2012 Private Health Insurance [id number] Self-pay [id number] Unknown [id number] Social History Date Type Detail Facility Start: [facility]02-2021 [facility] Start: 1970 Sex Assigned At Female [facility] Evaluation note Note Date & Type Note Facility Evaluation note No assessment information availa ble [facility] Work Phone: Reason for referral (narrative) Note Date & Type Note Facility Reason for referral (narrative) No reason for referral information available [facility] Work Phone: Summary Purpose Family History No Family History Records FoundNo Family History Records Found Advance Directives Advance Directive Response Recorded Date/ Time Advance Directives No August 9:16am Additional Source Comments INFORMATION SOURCE (unrecogn ized section and content) DATE CREATED AUTHOR 12/23/2017 [facility] DATE CREATED AUTHOR AUTHOR'S MATILDE ATION 01/04/2025 [facility] Care Teams (unrecognized sec tion and content) Team Status: Active Member Role/Relationship Status Dates Dr. Angelo Olivera DO Primary Care Provider Active Team Status: Inactive Member Role/Relationship Status Dates Dr. Angelo Olivera DO Primary Care Provider Active Start: January 02, 2025 End: January 02, 2025 Dr. Angelo Olivera DO Attending Provider Active Start: January 02, 2025 End: January 02, 2025 Goals (unrecognized section and content) Goals may be documented in a n alternate section FOR RECORDS PERTAINING TO PATIENTS WHO ARE OR HAVE BEEN ENROLLED IN A CHEMICAL DEPENDENCY/SUBSTANCEABUSE PROGRAM, SOME INFORMATION MAY BE OMITTED. This clinical summary was aggregated from multiple sources. Caution should be exercised in using it in the provision of clinical care. This summary normalizes information from multiple sources, and as a consequence, information in this document may materially change the coding, format and clinical context of patient data. In addition, data may be omitted in some cases. CLINICAL DECISIONS SHOULD BE BASED ON THE PRIMARY CLINICAL RECORDS. [employer] provides no warranty or guarantee of the accuracy or completeness of information in this document.
== END | disposition home or self-care (01) ==
LOC: OPBI 07:07
PROVIDERS: PCP Family Medicine; Referring Provider Family Medicine; Visit Provider Family Medicine
DX: Z12.31 Encounter for screening mammogram for malignant neoplasm of breast (principal)
CPT/HCPCS: 77063; 77067